=== PATIENT | female | born 1950 | race Caucasian/White ===

== ENCOUNTER 2020-11-21 20:05 | Inpatient (IN) ==
[2020-11-21] MEDS ORDERED: morphine 4 MG/ML VIAL IV ONE (20:45)
--- NOTE | 2020-11-21 20:48 | Emergency Department Note ---
HPI General Chief complaint: Fall Stated complaint: fall Time Seen by Provider: 11/21/20 20:45 Source: patient Mode of arrival: ambulatory Limitations: no limitations History of Present Illness HPI Narrative: Patient is a 70-year-old lady who arrives to the emergency department by ambulance accompanied by her daughter complaining of a fall. History is provided by the patient's daughter and is quite limited due to the patient's dementia. Patient apparently slipped and fell at home earlier today. Her helped her to couch where she laid all day unable to get up because of the pain. Her daughter arrived and found her in significant distress. She called 911 and the patient was transported to hospital for further evaluation. Paramedics did apply a makeshift pelvic binder prior to emergency department arrival as her pain appears to be localized to her lower extremities. Related Data Home Medications Medication Instructions Recorded Confirmed acetaminophen 325 mg capsule 325 mg PO QDAY PRN cap 05/24/18 11/21/20 Previous Rx's Medication Instructions Recorded food supplemt, lactose-reduced 1 each PO BID #472 ml 07/04/18 memantine 10 mg tablet 10 mg PO BID #180 tab 07/06/20 Allergies Allergy/AdvReac Type Severity Reaction Status Date / Time Cephalosporins Allergy Unknown Cardiac Verified 08/18/20 14:37 arrest ibuprofen Allergy Unknown Cardiac Verified 08/18/20 14:37 arrest levofloxacin [From Levaquin] Allergy Unknown Unknown Verified 08/18/20 14:37 Penicillins Allergy Unknown Unknown Verified 08/18/20 14:37 Review of Systems ROS ROS Narrative: Narrative: Limitations: ROS unobtainable due to patients medical condition [facility] Narrative Patient History Narrative: Narrative: Medical/Surgical/Family History All Active Problems (Updated 11/22/20 @ 01:50 by Nate Reyes DO) Closed hip fracture (Acute) Medicare annual wellness visit, initial (Acute) Cachexia (Acute) Alzheimer's dementia with behavioral disturbance (Acute) Osteoporosis (Acute) COPD (chronic obstructive pulmonary disease) (Chronic) Alzheimers disease (Chronic) COPD (chronic obstructive pulmonary disease) (Acute) Migraine (Chronic) Chronic sinusitis (Chronic) Surgical menopause (Chronic) Brachial plexopathy (Chronic) Medical History (Updated 11/22/20 @ 01:50 by Nate Reyes DO) Alzheimer's dementia with behavioral disturbance requires multiple redirections for behavior modification Alzheimers disease 2012 Brachial plexopathy Chronic sinusitis COPD (chronic obstructive pulmonary disease) Medicare annual wellness visit, initial Migraine Surgical menopause Surgical History History of fusion of cervical spine History of hysterectomy History of sinus surgery Tobi's neuroma Family History Unknown Benign neoplasm Essential hypertension Social History Smoking Status: Former smoker Alcohol Intake Frequency: does not drink Substance Use: does not use Exam Narrative Narrative: Gen -patient is awake and alert and appears quite uncomfortable. HEENT -head is atraumatic. There is no conjunctival pallor or scleral icterus. CV -S1-S2 regular rate and rhythm. Peripheral pulses are palpable. Resp -breathing is nonlabored. Lungs are clear to auscultation bilaterally. There is no cyanosis. GI - Abdomen is soft and nontender to palpation. There is no guarding or rebound tenderness. Derm -skin is warm and dry. MSK -patient holds bilateral hips in flexion and there is apparent tenderness to palpation of bilateral greater trochanters without of any obvious bony deformity. Pelvis is stable. Neuro -patient provides incomprehensible answers to questions. She occasionally follows some repeated commands but does not follow commands with any regularity. Patient moves all present extremities equally. General Limitations: no limitations Course Vital Signs Vital signs: Vital Signs Temperature 99 F 11/21/20 20:06 Pulse Rate 78 11/21/20 20:06 Respiratory Rate 18 11/21/20 20:06 Blood Pressure 120/68 11/21/20 20:06 Pulse Oximetry (%) 92 11/21/20 20:06 Temperature 99.3 F H 11/21/20 23:05 Pulse Rate 87 11/21/20 23:05 Respiratory Rate 14 11/21/20 23:05 Blood Pressure 124/68 11/21/20 23:05 Pulse Oximetry (%) 97 11/21/20 23:05 [facility] MDM Narrative Medical decision making narrative: Patient presents following a fall. X-rays reveal a left femoral neck fracture. I discussed the x-ray results and need for likely surgical intervention with the patient's daughter. She is agreeable with the plan for admission for surgical intervention. I discussed the patient's history examination and x-ray findings with Dr. Sanchez. He would like the patient admitted to the medical service and will see the patient in the hospital. I discussed the patient's history examination and diagnostic findings with Dr. Leigh, who agrees with the plan of care and accepts admission. Lab Data Result diagrams: 11/21/20 22:03 Labs: Lab Results 11/21/20 11/21/20 11/21/20 Range/Units 22:00 22:02 22:03 WBC 14.2 H (4.5-11.0) K/mcL RBC 4.11 (4.00-5.20) M/mcL Hgb 11.6 L (12.0-15.0) g/dL Hct 36.2 (36.0-48.0) % POC Hct 36 (36-48) % MCV 88.1 (80.0-100.0) fL MCH 28.2 (26.0-34.0) pg MCHC 32.0 (31.0-36.0) g/dL RDW 15.2 H (11.5-14.5) % Plt Count 313 (140-440) K/mcL MPV 10.7 H (7.4-10.4) fL Neut % (Auto) 91.3 H (38.0-78.0) % Lymph % (Auto) 4.0 L (15.0-49.0) % [place] % (Auto) 3.9 (1.0-12.0) % Eos % (Auto) 0.2 (0.0-7.0) % Baso % (Auto) 0.6 (0.0-2.0) % Lymph # (Auto) 0.56 L (1.50-4.80) K/mcL [place] # (Auto) 0.55 (0.10-0.90) K/mcL Eos # (Auto) 0.03 (0.00-0.70) K/mcL Baso # (Auto) 0.08 (0.00-0.20) K/mcL Absolute Neutrophils 12.94 H (1.80-8.00) K/mcL POC Sodium 140 (133-145) mEq/L POC Potassium 4.1 (3.3-5.1) mEql/L POC Chloride 106 (96-108) mEq/L POC Total CO2 29 (22-30) mmol/L POC BUN 25 H (6-20) mg/dL POC Creatinine 0.6 (0.6-1.2) mg/dL POC Glucose 136 H (70-105) mg/dL POC WB Ioniz Calcium 1.14 L (1.16-1.32) mmEq/L Urine Color [place] Urine Appearance Cloudy A (Clear) Urine pH 5.0 (5.0-9.0) Ur Specific [place] 1.020 (1.000-1.035) Urine Protein 30 A (Negative) mg/dL Urine Glucose (UA) Negative (Negative) mg/dL Urine Ketones Negative (Negative) mg/dL Urine Occult Blood 0.03 (Negative) mg/dL Urine Nitrate Negative (Negative) Urine Bilirubin Negative (Negative) mg/dL Urine Urobilinogen Negative mg/dL Ur Leukocyte Esterase 250 A (Negative) /ug Urine RBC 5 H (0-3) /hpf Urine WBC > 182 H (0-4) /hpf Ur Squamous Epith Cells 2 (0-4) /hpf Urine Bacteria Many A (0) /hpf Urine Mucus Many A (None) /hpf Ur Culture Indicated? yes ED POC Tests ED POC Tests: JOSIAH - SARS Antigen Negative Discharge Plan Patient/Caregiver Discharge Instructions Pt seen by SALES OPERATIONS ASSOCIATE/PA only: No Clinical Impression: Closed hip fracture Patient Disposition: Xfer As Inpt ([facility]) Condition: Fair Discharge Date/Time: 11/21/20 23:06
[2020-11-21 22:10] LABS: POC Blood Urea Nitrogen 25 mg/dL (6-20); POC CO2 29 mmol/L (22-30); POC Calcium, Ionized 1.14 mmEq/L (1.16-1.32); POC Chloride 106 mEq/L (96-108); POC Creatinine 0.6 mg/dL (0.6-1.2); POC Glucose, Random 136 mg/dL (70-105); POC Hematocrit 36 % (36-48); POC Potassium 4.1 mEql/L (3.3-5.1); POC Sodium 140 mEq/L (133-145)
--- NOTE | 2020-11-21 22:33 | Internal Med History&Physical ---
HPI History of Present Illness Patient information: Note initiated : 11/21/20 at 10:32 pm Service Date, if different from initiated Date: [] Patient: Libia Lovell a 70 y/o F admitted on for fall. Chief Complaint: [] History of present illness: Ms. Lovell is a 70 year old F with a history advanced dementia who sustained a ground-level fall at home resulting in left hip injury. Over the next few hours she remained immobile on the bed in pain and discomfort and was subsequently brought to the ER for evaluation. Initial work- up was consistent with left hip fracture and orthopedics was consulted. Orthopedics recommended hospitalization for operative intervention in the morning. Labs WBC 14.2, UA pending. Most of the history was obtained from family due to patient's underlying dementia. Patient started on pain medications. Hospitalist service was consulted for admission At the time of my evaluation patient is nonverbal. History was obtained from records and ER physician, she does not seem to apparent distress except for pain at the fracture site. Review of systems 10 point review systems attempted but could not performed PFSH PFSH All Active Problems (Updated 11/22/20 @ 01:50 by Nate Reyes DO) Closed hip fracture (Acute) Medicare annual wellness visit, initial (Acute) Cachexia (Acute) Alzheimer's dementia with behavioral disturbance (Acute) Osteoporosis (Acute) COPD (chronic obstructive pulmonary disease) (Chronic) Alzheimers disease (Chronic) COPD (chronic obstructive pulmonary disease) (Acute) Migraine (Chronic) Chronic sinusitis (Chronic) Surgical menopause (Chronic) Brachial plexopathy (Chronic) Medical History (Updated 11/22/20 @ 01:50 by Nate Reyes DO) Alzheimer's dementia with behavioral disturbance requires multiple redirections for behavior modification Alzheimers disease 2012 Brachial plexopathy Chronic sinusitis COPD (chronic obstructive pulmonary disease) Medicare annual wellness visit, initial Migraine Surgical menopause Surgical History History of fusion of cervical spine History of hysterectomy History of sinus surgery Britton's neuroma Family History Unknown Benign neoplasm Essential hypertension Social History caregiver/support person: Yes (daughter and dad/ ) marital status: occupational status: retired alcohol intake frequency: does not drink substance use type: does not use MEDS/ALLERGIES Home Medications and Allergies Home Medications Medication Instructions Recorded Confirmed Type acetaminophen 325 mg capsule 325 mg PO QDAY PRN cap 05/24/18 11/21/20 History food supplemt, lactose-reduced 1 each PO BID #472 ml 07/04/18 11/22/20 Rx memantine 10 mg tablet 10 mg PO BID #180 tab 07/06/20 11/21/20 Rx Allergies Allergy/AdvReac Type Severity Reaction Status Date / Time Cephalosporins Allergy Unknown Cardiac Verified 08/18/20 14:37 arrest ibuprofen Allergy Unknown Cardiac Verified 08/18/20 14:37 arrest levofloxacin [From Levaquin] Allergy Unknown Unknown Verified 08/18/20 14:37 Penicillins Allergy Unknown Unknown Verified 08/18/20 14:37 EXAM Constitutional Vitals: Temp Pulse Resp BP Pulse Ox 99 F 73 18 134/65 93 11/21/20 20:06 11/21/20 22:16 11/21/20 20:06 11/21/20 22:16 11/21/20 22:16 Nonverbal, in discomfort occasionally moaning Head normocephalic Oral cavity moist No ear nose discharge Eye movement symmetrical Neck supple no lymphadenopathy S1-S2 regular ESM grade 1 Nonlabored breathing Nondistended nontender abdomen Left lower extremity externally rotated and shortened, left foot bruising/induration Skin no suspicious lesion Psych anxious but alert cooperative Neuro could not be examined due to underlying dementia DATA Data Completed and Pending Labs: Labs from last 24 hours 11/21/20 11/21/20 11/21/20 22:03 22:02 22:00 WBC Pending RBC Pending Hgb Pending Hct Pending POC Hct 36 MCV Pending MCH Pending MCHC Pending RDW Pending Plt Count Pending MPV Pending Neut % (Auto) Pending POC Sodium 140 POC Potassium 4.1 POC Chloride 106 POC Total CO2 29 POC BUN 25 H POC Creatinine 0.6 POC Glucose 136 H POC WB Ioniz Calcium 1.14 L Urine Color Pending Urine Appearance Pending Urine pH Pending Ur Specific [place] Pending Urine Protein Pending Urine Glucose (UA) Pending Urine Ketones Pending Urine Occult Blood Pending Urine Nitrate Pending Urine Bilirubin Pending Urine Urobilinogen Pending Ur Leukocyte Esterase Pending A/P Narrative A/P Narrative: * Left hip fracture-orthopedics on board. Undergo surgery in a.m. * Pain management will be as per orthopedics Hospitalist consult for management of medical issues * Preoperative risk evaluation-based on RCRI [place] [employer] to stratification patient would fall under high risk category in the setting advanced age however she does not have history of CAD/decompensated heart failure/CVA or insulin-dependent diabetes. Renal function stable at GFR 74. No modifiable risk factors at this time. Can proceed with surgery however surgery and anesthesia specific risk will be addressed by individual care providers * Advanced dementia continue memantine * Prophylaxis will be as per orthopedics Plan * Inpatient admission * Keep n.p.o. after midnight/crystalloids and pain management * Early mobilization/rehab during postoperative phase * Pain management * Discharge planning Time Spent With Patient Time: Total time spent is greater than 50% in coordination of care (as documented) at patient's floor/unit and/or counseling patient:
[2020-11-21 22:48] LABS: Basophils # (Auto) 0.08 K/mcL (0.00-0.20); Basophils % (Auto) 0.6 % (0.0-2.0); Eosinophils # (Auto) 0.03 K/mcL (0.00-0.70); Eosinophils % (Auto) 0.2 % (0.0-7.0); Hematocrit 36.2 % (36.0-48.0); Hemoglobin 11.6 g/dL (12.0-15.0); Lymphocytes # (Auto) 0.56 K/mcL (1.50-4.80); Mean Cell Volume 88.1 fL (80.0-100.0); Mean Platelet Volume 10.7 fL (7.4-10.4); Monocytes # (Auto) 0.55 K/mcL (0.10-0.90); Monocytes % (Auto) 3.9 % (1.0-12.0); Neutrophils % (Auto) 91.3 % (38.0-78.0); Platelet Count 313 K/mcL (140-440); RBC 4.11 M/mcL (4.00-5.20); Red Cell Distribution Width 15.2 % (11.5-14.5); WBC 14.2 K/mcL (4.5-11.0)
[2020-11-21 23:02] LABS: Appearance,Urine CLOUDY (Clear); Bacteria,Urine MANY /hpf (0); Bilirubin,Urine Negative (Negative); Color,Urine AMBER; Culture Indicated,Urine yes; Glucose,Urine (UA) Negative (Negative); Ketones,Urine Negative (Negative); Leukocyte Esterase,Urine 250 /ug (Negative); Mucus,Urine MANY /hpf; Nitrate,Urine Negative (Negative); Protein,Urine 30 mg/dL (Negative); Urine Blood 0.03 mg/dL (Negative); Urine RBC 5 /hpf (0-3); Urine Squamous Epithelial Cell 2 /hpf (0-4); Urine WBC > 182 /hpf (0-4); Urobilinogen,Urine Negative
[2020-11-21] MEDS ORDERED: ONDANSETRON 4 MG/2 ML VIAL IV PRN (23:24)
[2020-11-21] MEDS ORDERED: ONDANSETRON 4 MG ODT TABLET SL PRN (23:24)
[2020-11-21] MEDS ORDERED: ACETAMINOPHEN 325 MG TABLET PO PRN (23:24)
[2020-11-21] MEDS ORDERED: BISACODYL 10 MG SUPP.RECT PR PRN (23:24)
[2020-11-21] MEDS ORDERED: POTASSIUM CHLORIDE 20 MEQ PACKET PO PRN (23:24)
[2020-11-21] MEDS ORDERED: MAGNESIUM SULFATE 2 GM/50 ML BAG IV PRN (23:24)
[2020-11-21] MEDS ORDERED: POTASSIUM CHLORIDE 40 MEQ in DEXTROSE 5% IN WATER 500 ML IV PRN (23:24)
[2020-11-21] MEDS ORDERED: POLYETHYLENE GLYCOL 3350 17 GM PACKET PO PRN (23:24)
[2020-11-22] MEDS: 0.9 % SODIUM CHLORIDE 1,000 ML IV SCH ×3 (01:44→22:26)
[2020-11-22] MEDS ORDERED: HYDROmorphone 0.5 MG/0.5 ML SYRINGE ONE (02:56)
[2020-11-22] MEDS: HYDROmorphone 0.5 MG/0.5 ML SYRINGE IV PRN ×3 (02:58→18:39)
--- NOTE | 2020-11-22 06:33 | XRay Report ---
CLINICAL INFORMATION: fall COMPARISON: None. FINDINGS: Acute subcapital fracture of the left hip shows less than 1 cm superior displacement of the femoral neck. There is mild impaction. Mild degeneration in the left hip and both SI joints appreciated. Right hip is unremarkable. Large amount of rectal stool noted with dense particles. Soft tissue swelling over the fracture site IMPRESSION: Moderately displaced acute subcapital fracture - left hip Interpreted and Authenticated by: Rusty Blancas 11/22/20
[2020-11-22] MEDS: 0.9 % SODIUM CHLORIDE 10 ML SYRINGE IV SCH ×3 (06:37→21:01)
--- NOTE | 2020-11-22 06:45 | XRay Report ---
CLINICAL INFORMATION: Trauma - fall COMPARISON: 02/12/2016 FINDINGS: Heart size, mediastinum and pulmonary vessels are normal. Lung Bonser elevated and there is wall thickening of the bronchi compatible chronic bronchitis or asthma - no change. Lungs are otherwise clear. No effusions or evidence of pneumothorax. No evidence of fracture in the spine or ribs IMPRESSION: Moderate chronic bronchitis or asthma - stable. No acute posttraumatic change Interpreted and Authenticated by: Rusty Blancas 11/22/20
--- NOTE | 2020-11-22 06:58 | Cat Scan Report ---
CLINICAL INFORMATION: Trauma - fall. History of dementia COMPARISON: None. TECHNIQUE: 2.5 mm helical slices were obtained in the skull base to vertex. Following reconstruction, axial reformatted images were reviewed at bone and parenchymal windows. The exam was performed using radiation dose optimization techniques including, but not limited to, automated exposure control, adjustment of the mA and/or kV according to patient size and use of iterative reconstruction technique. FINDINGS: The ventricles, sulci, fissures, and cisterns are symmetrically enlarged bowel with moderate atrophy. No extra-axial fluid collections are identified. Moderate chronic ischemic changes seen in the deep cerebral white matter and basal ganglia. There is no evidence of hemorrhage, mass effect, or edema. Bone windows show no osseous abnormality. IMPRESSION: Moderate atrophy and moderate chronic ischemic changes in the cerebral white matter and basal ganglia slightly more than typically seen for this age group. There is no intracerebral hemorrhage or posttraumatic change. Large amount of cerumen in both external auditory canals. Interpreted and Authenticated by: Rusty Blancas 11/22/20
[2020-11-22 07:22] LABS: Basophils # (Auto) 0.06 K/mcL (0.00-0.20); Basophils % (Auto) 0.6 % (0.0-2.0); Eosinophils # (Auto) 0.21 K/mcL (0.00-0.70); Eosinophils % (Auto) 2.1 % (0.0-7.0); Hematocrit 34.6 % (36.0-48.0); Lymphocytes % (Auto) 7.9 % (15.0-49.0); Mean Cell Volume 88.5 fL (80.0-100.0); Mean Corpuscular HGB Conc 31.8 g/dL (31.0-36.0); Mean Platelet Volume 10.3 fL (7.4-10.4); Monocytes # (Auto) 0.51 K/mcL (0.10-0.90); Monocytes % (Auto) 5.1 % (1.0-12.0); Neutrophils % (Auto) 84.3 % (38.0-78.0); Platelet Count 292 K/mcL (140-440); RBC 3.91 M/mcL (4.00-5.20); Red Cell Distribution Width 15.1 % (11.5-14.5); WBC 10.1 K/mcL (4.5-11.0)
[2020-11-22 07:38] LABS: ALT/SGPT 27 U/L (<40); AST/SGOT 24 U/L (<32); Albumin 3.1 gm/dL (3.2-5.2); Alkaline Phosphatase 117 U/L (39-117); Bilirubin,Direct < 0.2 mg/dL (0-0.3); Bilirubin,Total 0.3 mg/dL (0.1-1.0); Blood Urea Nitrogen 22 mg/dL (8-23); Calcium 8.4 mg/dL (8.6-10.4); Carbon Dioxide 25 mmol/L (22-30); Chloride 104 mmol/L (96-108); Glomerular Filtration Rate 74; Glucose 124 mg/dL (70-105); Lactate Dehydrogenase 285 U/L (135-225); Phosphorous 2.9 mg/dL (2.5-4.5); Triglycerides 56 mg/dL (<150); Uric Acid 3.2 mg/dL (2.5-8.0)
[2020-11-22] MEDS ORDERED: METHOCARBAMOL 1,000 MG/10 ML VIAL IV ONE (07:40)
[2020-11-22] MEDS ORDERED: VANCOMYCIN 1,000 MG in 0.9 % SODIUM CHLORIDE 250 ML IV ONE (07:51)
--- NOTE | 2020-11-22 07:53 | Cat Scan Report ---
CLINICAL INFORMATION: Trauma COMPARISON: None. TECHNIQUE: 0.625 mm helical slices were obtained from the skull base through the superior T2 end plate, and following reconstruction, 2.5 mm sagittal, coronal and axial reformations were then processed. The exam was reviewed at bone and soft tissue windows. The exam was performed using radiation dose optimization techniques including, but not limited to, automated exposure control, adjustment of the mA and/or kV according to patient size and use of iterative reconstruction technique. FINDINGS: Moderate dextroscoliosis of the cervical and upper thoracic spine appreciated. 3 mm C4 and C7 anterior subluxation due to degenerative facet disease. No fracture appreciated. Partial fusion of the C5-6 vertebral bodies is likely congenital. The cervical cord is normal in contour and caliber without evidence of hemorrhage or other abnormality. No soft tissue abnormality. The C2-3 disc level is normal. At C3-4, moderate broad disc protrusion left-sided asymmetry results in mild left lateral recess and central canal narrowing At C4-5, moderate broad far left disc spur complex and facet arthropathy result in severe left IV foraminal narrowing. There is impingement of the exiting left C5 nerve root. Mild central canal stenosis. At C5-6, moderate left IV foraminal narrowing due to uncovertebral spurring. There may be impingement of the exiting left C6 nerve root At C6-7 small central disc protrusion impinges the anterior thecal sac. The C7-T1 disc level is normal IMPRESSION: 1. No fracture or other posttraumatic change. 2. Multilevel degeneration resulting in central canal, lateral recess and IV foraminal narrowing with exiting nerve root impingement. Please correlate with recurrent or chronic upper extremity radiculopathy Interpreted and Authenticated by: Rusty Blancas 11/22/20
[2020-11-22] MEDS: MULTIVIT,THER IRON,CA,FA & MIN 1 TABLET PO SCH (08:45)
--- NOTE | 2020-11-22 08:45 | Consultation ---
DATE OF CONSULTATION: 11/22/2020 IDENTIFICATION: Libia is a 70-year-old female. CHIEF COMPLAINT: Left hip fracture. HISTORY OF PRESENT ILLNESS: Libia sustained a non-syncopal ground level fall yesterday. She had pain, but sat around on the couch for a while hoping it would get better. She was ultimately transported to the hospital here at [facility] where she was evaluated by Dr. Reyes and a left hip fracture was noted. She was also noted to have a urinary tract infection. She was admitted to hospitalist service because of her comorbidities. She on presentation does seem to be in a fair amount of discomfort with spasming in and about the left hip. She has been unable to weightbear. She does have a history of fairly advanced dementia, and so personally she is a poor historian. PAST MEDICAL HISTORY: Significant for COPD, fairly advanced Alzheimer's, some sort of a unknown brachial plexopathy, and she carries a diagnosis of cachexia which certainly would be a increased risk for surgical intervention. PAST SURGICAL HISTORY: Previous cervical fusion and hysterectomy, otherwise noncontributory. SOCIAL HISTORY: Previous smoker. Does not drink alcohol. She lives at home with her . Her family including the daughter that I met this morning are very involved in her care. REVIEW OF SYSTEMS: My understanding is that she has been healthy recently and a 10-point review of systems is negative. MEDICATIONS: Please see intake questionnaire, they are noted on hospital record. ALLERGIES: INCLUDE CEPHALOSPORINS, IBUPROFEN, LEVAQUIN, PENICILLIN. PHYSICAL EXAMINATION: GENERAL: She does awaken, really does not answer questions. She does seem to be in some discomfort with some spasms about this hip fracture especially with any movement. HEAD: Normocephalic, atraumatic. EYES: Conjunctivae is clear with no drainage. ENT: Within normal limits. NECK: Supple without pain on range of motion. HEART: Regular. LUNGS: Clear. ABDOMEN: Benign. EXTREMITIES: Her left hip is carefully positioned. Certainly, any motion produces severe pain. She seems to be without focal neurovascular deficit ____ distally. IMAGING: Radiographs demonstrate left hip fracture, this is femoral neck which is displaced. IMPRESSION: Left femoral neck fracture. This is a displaced femoral neck fracture in need of operative treatment. We discussed the risks, complications, and limitations at length with the daughter. She understands this is certainly a complicated problem, but wishes to move ahead with surgical intervention. We will plan to proceed with hemiarthroplasty. HERNANDOD:marycarmen Job ID: [id number] Doc ID: [id number] Terrence Sanchez MD
[2020-11-22] MEDS ORDERED: DOCUSATE SODIUM 100 MG CAPSULE PO SCH (09:00)
[2020-11-22] MEDS ORDERED: PROPOFOL 200 MG/20 ML VIAL IV ONE (09:05)
[2020-11-22] MEDS ORDERED: KETAMINE 50 MG/ML ML ONE (09:05)
[2020-11-22] MEDS ORDERED: fentaNYL 100 MCG/2 ML VIAL IV ONE (09:05)
[2020-11-22] MEDS ORDERED: ONDANSETRON 4 MG/2 ML VIAL ONE (09:05)
[2020-11-22] MEDS ORDERED: PHENYLEPHRINE 10 MG/ML VIAL ONE (09:05)
[2020-11-22] MEDS ORDERED: DEXAMETHASONE 10 MG/ML VIAL ONE (09:05)
[2020-11-22] MEDS ORDERED: GLYCOPYRROLATE 0.2 MG/ML VIAL IV ONE (09:05)
[2020-11-22] MEDS ORDERED: LIDOCAINE HCL/PF 100 MG/5 ML SYRINGE IV ONE (09:05)
[2020-11-22] MEDS ORDERED: IPRATROPIUM/ALBUTEROL 3 ML AMPUL.NEB NEB PRN (09:32)
[2020-11-22] MEDS ORDERED: LACTATED RINGERS 250 ML IV PRN (09:32)
[2020-11-22] MEDS ORDERED: fentaNYL 100 MCG/2 ML VIAL IV PRN (09:32)
[2020-11-22] MEDS ORDERED: NALOXONE HCL 0.4 MG/ML VIAL IV PRN (09:32)
[2020-11-22] MEDS ORDERED: ACETAMINOPHEN 1,000 MG/100 ML BAG IV ONE (09:32)
[2020-11-22] MEDS ORDERED: cefTRIAXone 2 GM in DEXTROSE 5% IN WATER 50 ML IV ONE (09:36)
[2020-11-22] MEDS ORDERED: LACTATED RINGERS 1,000 ML IV SCH (09:45)
--- NOTE | 2020-11-22 09:45 | Internal Med Progress Note ---
SUBJECTIVE Subjective Patient information: Note initiated : 11/22/20 at 9:40 am Service Date, if different from initiated Date: [] Patient: Libia Lovell a 70 y/o F admitted on 11/21/20 for fall. Chief Complaint: [] Interval history: Ms. Lovell is a 70 year old F with a history advanced dementia who sustained a ground-level fall at home resulting in left hip injury. Over the next few hours she remained immobile on the bed in pain and discomfort and was subsequently brought to the ER for evaluation. Initial work-up was consistent with left hip fracture and orthopedics was consulted. Orthopedics recommended hospitalization for operative intervention in the morning. Labs WBC 14.2, UA pending. Most of the history was obtained from family due to patient's underlying dementia. Patient started on pain medications. Hospitalist service was consulted for admission At the time of my evaluation patient is nonverbal. History was obtained from records and ER physician, she does not seem to apparent distress except for pain at the fracture site. 11/22-UA significant for pyuria. T-max 100.1. Started on Rocephin. Scheduled for surgery. Will review postop. Overnight no other concerns per nursing staff. Occasionally moaning in pain.Stable labs including white count at 10 down from 14, urine cultures pending. Started quinolone Constitutional Vitals: Vital Signs Temp Pulse Resp BP Pulse Ox 100.1 F H 99 H 14 123/69 95 11/22/20 07:00 11/22/20 07:00 11/22/20 07:00 11/22/20 07:00 11/22/20 07:00 Period Temp Pulse Resp BP Sys/Rodas Pulse Ox Last 24 Hr 98.4 F-100.1 F 73-99 14-18 120-141/62-117 90-97 Intake and Output 11/21/20 11/22/20 11/22/20 21:59 05:59 13:59 Intake Total 0 250 Output Total 325 Balance 0 -75 Weight 35.38 kg 35.834 kg In moderate discomfort occasionally moaning Nonlabored breathing No anxiety agitation Left lower extremity externally rotated and shortened/foot swelling Intake & Output: Intake & Output 11/21/20 11/22/20 11/22/20 21:59 05:59 13:59 Intake Total 0 250 Output Total 325 Balance 0 -75 Weight 35.38 kg 35.834 kg Intake: IV 250 Vancomycin 1,000 mg In Sodium 250 Chloride 0.9% 250 ml @ 250 mls/ hr IV ONCE ONE Rx#:[id number] Oral 0 0 Output: Urine Catheter Amount 325 Other: Urine Appearance Clear Clear Uretheral (Peterson) Cloudy Clear Clear Urine Color Dark Yellow Dark Yellow Uretheral (Peterson) Bright Yellow Dark Yellow Dark Yellow Urine Odor Foul Uretheral (Peterson) Normal Stool Size Smear Stool Color Brown Stool Consistency Soft OBJ DATA Labs CBC & Chem 7: 11/23/20 05:47 11/23/20 05:47 Labs: Abnormal Lab Results 11/22/20 11/22/20 11/21/20 05:47 05:47 22:03 WBC 14.2 H RBC 3.91 L Hgb 11.0 L 11.6 L Hct 34.6 L RDW 15.1 H 15.2 H MPV 10.7 H Neut % (Auto) 84.3 H 91.3 H Lymph % (Auto) 7.9 L 4.0 L Lymph # (Auto) 0.80 L 0.56 L Absolute Neutrophils 8.50 H 12.94 H Anion Gap 6.0 L POC BUN Glucose 124 H POC Glucose Calcium 8.4 L POC WB Ioniz Calcium Lactate Dehydrogenase 285 H Albumin 3.1 L Urine Appearance Urine Protein Ur Leukocyte Esterase Urine RBC Urine WBC Urine Bacteria Urine Mucus 11/21/20 11/21/20 22:02 22:00 WBC RBC Hgb Hct RDW MPV Neut % (Auto) Lymph % (Auto) Lymph # (Auto) Absolute Neutrophils Anion Gap POC BUN 25 H Glucose POC Glucose 136 H Calcium POC WB Ioniz Calcium 1.14 L Lactate Dehydrogenase Albumin Urine Appearance Cloudy A Urine Protein 30 A Ur Leukocyte Esterase 250 A Urine RBC 5 H Urine WBC > 182 H Urine Bacteria Many A Urine Mucus Many A Meds: Medications Acetaminophen (Acetaminophen 325 Mg Tablet) 650 mg PO Q4-6HP PRN; Protocol PRN Reason: Per Pain Protocol/Fever > 101 Albuterol/Ipratropium (Ipratropium/Albuterol 3 Ml Ampul.Neb) 3 ml NEB ONCE PRN PRN Reason: Wheezing Stop: 11/22/20 11:32 Bisacodyl (Bisacodyl 10 Mg Supp.Rect) 10 mg [place] Q2-3DAYS PRN PRN Reason: Constipation Docusate Sodium (Docusate Sodium 100 Mg Capsule) 100 mg PO BID [facility] Last Admin: 11/22/20 08:45 Dose: Not Given Documented by: Fentanyl (Fentanyl 100 Mcg/2 Ml Vial) 25 mcg IV Q2M PRN PRN Reason: Pain Stop: 11/22/20 11:33 Hydromorphone HCl (Hydromorphone 0.5 Mg/0.5 Ml Syringe) 0.25 - 0.5 mg IV Q4HP PRN; Protocol PRN Reason: Per Pain Protocol Last Admin: 11/22/20 07:30 Dose: 0.25 mg Documented by: Potassium Chloride 40 meq/ (Dextrose) 520 mls @ 130 mls/hr IV UD PRN PRN Reason: K+ = or < 3.5 Acetaminophen (Ofirmev) 650 mg in 65 mls @ 130 mls/hr IV Q6HP PRN; Protocol PRN Reason: Per Pain Protocol/Fever > 101 Magnesium Sulfate (Magnesium Sulfate) 2 gm in 50 mls @ 50 mls/hr IV UD PRN PRN Reason: MG = or < 1.7 Sodium Chloride (Sodium Chloride 0.9%) 1,000 mls @ 50 mls/hr IV .Q20H [facility] Stop: 11/24/20 11:23 Last Admin: 11/22/20 01:44 Dose: 50 mls/hr Documented by: Lactated Ringer's (Lactated Ringers) 1,000 mls @ 0 mls/hr IV PRN PRN PRN Reason: Hypovolemia Stop: 11/22/20 11:32 Lactated Ringer's (Lactated Ringers) 1,000 mls @ 20 mls/hr IV .Q24H [facility] Stop: 11/22/20 11:32 Acetaminophen (Ofirmev) 1,000 mg in 100 mls @ 200 mls/hr IV ONCE ONE Stop: 11/22/20 10:01 Ceftriaxone Sodium 2 gm/ (Dextrose) 50 mls @ 100 mls/hr IV ONCE ONE; Protocol Stop: 11/22/20 10:05 Iron Carb/Multivit/Cardroom Hand/Folic Acid (Multivit,Ther Iron,Ca,Fa & Min 1 Tablet) 1 tab PO DAILY [facility] Last Admin: 11/22/20 08:45 Dose: Not Given Documented by: Melatonin (Melatonin 3 Mg Tablet) 3 mg PO HSP PRN PRN Reason: Insomnia Naloxone HCl (Naloxone Hcl 0.4 Mg/Ml Vial) 0.1 mg IV Q2MIN PRN PRN Reason: Opiate Reversal Stop: 11/22/20 11:33 Ondansetron HCl (Ondansetron 4 Mg Odt Tablet) 4 mg SL Q4-6HP PRN; Protocol PRN Reason: Nausea And Vomiting Ondansetron HCl (Ondansetron 4 Mg/2 Ml Vial) 4 mg IV Q4-6HP PRN; Protocol PRN Reason: Nausea And Vomiting Polyethylene Glycol (Polyethylene Glycol 3350 17 Gm Packet) 17 gm PO DAILYP PRN PRN Reason: Constipation Potassium Chloride (Potassium Chloride 20 Meq Packet) 40 meq PO DAILYP PRN PRN Reason: K+ < 3.5 Senna/Docusate Sodium (Sennosides/Docusate Sodium 1 Tab Tablet) 1 tab PO HS [facility] Sodium Chloride (0.9 % Sodium Chloride 10 Ml Syringe) 10 ml IV Q8 [facility] Last Admin: 11/22/20 06:37 Dose: Not Given Documented by: A/P Narrative A/P Narrative: * Left hip fracture- will undergo surgery today. Review postop * Pain management will be as per orthopedics Hospitalist consult for management of medical issues * Uncomplicated UTI start quinolone. De-escalate based on cultures * Advanced dementia continue memantine, Dementia care/delirium watch * DVT prophylaxis will be as per orthopedics Plan * Start antibiotic coverage * Review postop * Early mobilization/rehab during postoperative phase * Pain management/DVT prophylaxis per orthopedics * Discharge planning likely SNF Time Spent With Patient Time: Total time spent is greater than 50% in coordination of care (as documented) at patient's floor/unit and/or counseling patient:
--- NOTE | 2020-11-22 10:00 | Brief Operative Note ---
Brief Operative Note Date of procedure: 11/22/20 Pre-op diagnosis: Left hip fracture Post-op diagnosis: same Procedure: hemiarthroplasty Grafts/Implants: Yes Anesthesia: GETA Complications: none Surgeon: Terrence Sanchez Mangle Roller: Terrence Arevalo Estimated blood loss (cc): 50 Condition: stable Disposition: PACU
[2020-11-22] MEDS ORDERED: BISACODYL 10 MG SUPP.RECT PR PRN (10:02)
[2020-11-22] MEDS ORDERED: FLEETS ADULT ENEMA PR PRN (10:02)
[2020-11-22] MEDS ORDERED: BENZOCAINE/MENTHOL 1 LOZENGE PO PRN (10:02)
[2020-11-22] MEDS ORDERED: MAGNESIUM HYDROXIDE 30 ML ORAL.SUSP PO PRN (10:02)
[2020-11-22] MEDS ORDERED: POLYETHYLENE GLYCOL 3350 17 GM PACKET PO PRN (10:02)
[2020-11-22] MEDS ORDERED: 0.9 % SODIUM CHLORIDE 10 ML SYRINGE IV ONE (10:09)
[2020-11-22] MEDS: LEVOFLOXACIN 750 MG/150 ML BAG IV SCH (10:10)
[2020-11-22] MEDS ORDERED: HYDROmorphone 0.5 MG/0.5 ML SYRINGE IV ONE (10:32)
[2020-11-22] MEDS ORDERED: VANCOMYCIN 1,000 MG in 0.9 % SODIUM CHLORIDE 250 ML IV SCH (20:00)
[2020-11-22] MEDS: DOCUSATE SODIUM 100 MG CAPSULE PO SCH (20:12)
[2020-11-22] MEDS: SENNOSIDES 1 TABLET PO SCH (20:12)
[2020-11-22] MEDS ORDERED: SENNOSIDES/DOCUSATE SODIUM 1 TAB TABLET PO SCH (21:00)
[2020-11-23] MEDS: 0.9 % SODIUM CHLORIDE 10 ML SYRINGE IV SCH ×3 (04:36→22:29)
[2020-11-23 06:43] LABS: Basophils # (Auto) 0.03 K/mcL (0.00-0.20); Basophils % (Auto) 0.3 % (0.0-2.0); Eosinophils # (Auto) 0.17 K/mcL (0.00-0.70); Eosinophils % (Auto) 1.8 % (0.0-7.0); Hemoglobin 9.1 g/dL (12.0-15.0); Lymphocytes # (Auto) 1.32 K/mcL (1.50-4.80); Lymphocytes % (Auto) 14.2 % (15.0-49.0); Mean Cell Volume 88.6 fL (80.0-100.0); Mean Corpuscular HGB Conc 32.5 g/dL (31.0-36.0); Mean Platelet Volume 10.3 fL (7.4-10.4); Monocytes # (Auto) 0.61 K/mcL (0.10-0.90); Monocytes % (Auto) 6.6 % (1.0-12.0); Neutrophils % (Auto) 77.1 % (38.0-78.0); Platelet Count 247 K/mcL (140-440); RBC 3.16 M/mcL (4.00-5.20); Red Cell Distribution Width 15.3 % (11.5-14.5); WBC 9.3 K/mcL (4.5-11.0)
[2020-11-23 07:07] LABS: INR 0.9 (0.9-1.1); Prothrombin Time 12.9 sec (11.9-14.5)
[2020-11-23 07:15] LABS: ALT/SGPT 22 U/L (<40); AST/SGOT 30 U/L (<32); Albumin 2.7 gm/dL (3.2-5.2); Alkaline Phosphatase 93 U/L (39-117); Bilirubin,Direct < 0.2 mg/dL (0-0.3); Bilirubin,Total 0.2 mg/dL (0.1-1.0); Blood Urea Nitrogen 18 mg/dL (8-23); Calcium 8.1 mg/dL (8.6-10.4); Carbon Dioxide 24 mmol/L (22-30); Chloride 107 mmol/L (96-108); Globulin 2.7 gm/dL (2.2-3.7); Glomerular Filtration Rate 74; Glucose 109 mg/dL (70-105); Lactate Dehydrogenase 264 U/L (135-225); Phosphorous 2.8 mg/dL (2.5-4.5); Triglycerides 85 mg/dL (<150); Uric Acid 2.8 mg/dL (2.5-8.0)
[2020-11-23] MEDS: MULTIVIT,THER IRON,CA,FA & MIN 1 TABLET PO SCH (09:01)
[2020-11-23] MEDS: 0.9 % SODIUM CHLORIDE 1,000 ML IV SCH ×2 (09:02→18:25)
[2020-11-23] MEDS: DOCUSATE SODIUM 100 MG CAPSULE PO SCH ×3 (09:02→22:56)
[2020-11-23] MEDS: LEVOFLOXACIN 750 MG/150 ML BAG IV SCH (09:03)
--- NOTE | 2020-11-23 09:24 | Internal Med Progress Note ---
SUBJECTIVE Subjective Patient information: Note initiated : 11/23/20 at 9:21 am Service Date, if different from initiated Date: [] Patient: Libia Lovell a 70 y/o F admitted on 11/21/20 for fall. Chief Complaint: [] Interval history: Ms. Lovell is a 70 year old F with a history advanced dementia who sustained a ground-level fall at home resulting in left hip injury. Over the next few hours she remained immobile on the bed in pain and discomfort and was subsequently brought to the ER for evaluation. Initial work-up was consistent with left hip fracture and orthopedics was consulted. Orthopedics recommended hospitalization for operative intervention in the morning. Labs WBC 14.2, UA pending. Most of the history was obtained from family due to patient's underlying dementia. Patient started on pain medications. Hospitalist service was consulted for admission At the time of my evaluation patient is nonverbal. History was obtained from records and ER physician, she does not seem to apparent distress except for pain at the fracture site. 11/22-UA significant for pyuria. T-max 100.1. Started on Rocephin. Scheduled for surgery. Will review postop. Overnight no other concerns per nursing staff. Occasionally moaning in pain.Stable labs including white count at 10 down from 14, urine cultures pending. Started quinolone 11/23-postop day 2. Doing well. Able to feed with assistance. Daughter expressed desire for SNF placement due to advanced dementia and need for postoperative rehab. Case management to coordinate. Improving white count. Continuing levofloxacin for UTI. Recovering well postop. No significant postoperative pain. Slightly drowsy this morning Constitutional Vitals: Vital Signs Temp Pulse Resp BP Pulse Ox 98.2 F 85 20 114/67 92 11/23/20 07:18 11/23/20 07:18 11/23/20 07:18 11/23/20 07:18 11/23/20 07:18 Period Temp Pulse Resp BP Sys/Rodas Pulse Ox Last 24 Hr 96.7 F-98.5 F 57-98 8-20 99-140/56-89 69-100 Intake and Output 11/22/20 11/23/20 11/23/20 21:59 05:59 13:59 Intake Total 336 902 0413 Output Total 1400 Balance 320 -690 1000 Weight 35.834 kg Alert and eating breakfast Minimally communicative at baseline Nonlabored breathing Intake & Output: Intake & Output 11/22/20 11/23/20 11/23/20 21:59 05:59 13:59 Intake Total 839 589 9958 Output Total 1400 Balance 320 -690 1000 Weight 35.834 kg Intake: IV 250 1000 Sodium Chloride 0.9% 1,000 ml @ 1000 50 mls/hr IV .Q20H [facility] Rx#: [id number] Vancomycin 1,000 mg In Sodium 250 Chloride 0.9% 250 ml @ 250 mls/ hr IV ONCE [facility] Rx#:[id number] Oral 320 460 Output: Urine Catheter Amount 1400 Other: Meal Dinner Percent of Meal Consumed 75% Feeding Ability Total Assistance Urine Appearance Clear Clear Uretheral (Peterson) Clear Clear Urine Color Bright Yellow Straw Uretheral (Peterson) Straw Straw Urine Odor Normal Normal Uretheral (Peterson) Normal Normal Stool Size Smear Stool Color Brown # Voids 1 OBJ DATA Labs CBC & Chem 7: 11/23/20 05:47 11/23/20 05:47 Labs: Abnormal Lab Results 11/23/20 11/23/20 11/22/20 05:47 05:47 05:47 WBC RBC 3.16 L Hgb 9.1 L Hct 28.0 L RDW 15.3 H MPV Neut % (Auto) Lymph % (Auto) 14.2 L Lymph # (Auto) 1.32 L Absolute Neutrophils Anion Gap 6.0 L 6.0 L POC BUN Glucose 109 H 124 H POC Glucose Calcium 8.1 L 8.4 L POC WB Ioniz Calcium Lactate Dehydrogenase 264 H 285 H Total Protein 5.4 L Albumin 2.7 L 3.1 L Urine Appearance Urine Protein Ur Leukocyte Esterase Urine RBC Urine WBC Urine Bacteria Urine Mucus 11/22/20 11/21/20 11/21/20 05:47 22:03 22:02 WBC 14.2 H RBC 3.91 L Hgb 11.0 L 11.6 L Hct 34.6 L RDW 15.1 H 15.2 H MPV 10.7 H Neut % (Auto) 84.3 H 91.3 H Lymph % (Auto) 7.9 L 4.0 L Lymph # (Auto) 0.80 L 0.56 L Absolute Neutrophils 8.50 H 12.94 H Anion Gap POC BUN 25 H Glucose POC Glucose 136 H Calcium POC WB Ioniz Calcium 1.14 L Lactate Dehydrogenase Total Protein Albumin Urine Appearance Urine Protein Ur Leukocyte Esterase Urine RBC Urine WBC Urine Bacteria Urine Mucus 11/21/20 22:00 WBC RBC Hgb Hct RDW MPV Neut % (Auto) Lymph % (Auto) Lymph # (Auto) Absolute Neutrophils Anion Gap POC BUN Glucose POC Glucose Calcium POC WB Ioniz Calcium Lactate Dehydrogenase Total Protein Albumin Urine Appearance Cloudy A Urine Protein 30 A Ur Leukocyte Esterase 250 A Urine RBC 5 H Urine WBC > 182 H Urine Bacteria Many A Urine Mucus Many A Meds: Medications Acetaminophen (Acetaminophen 325 Mg Tablet) 650 mg PO Q4-6HP PRN; Protocol PRN Reason: Per Pain Protocol/Fever > 101 Hydrocodone Bitart/Acetaminophen (Hydrocodone/Apap 5/325mg Tablet) 0 tab PO Q4HP PRN; Protocol PRN Reason: Per Pain Protocol Bisacodyl (Bisacodyl 10 Mg Supp.Rect) 10 mg [place] Q2-3DAYS PRN PRN Reason: Constipation Docusate Sodium (Docusate Sodium 100 Mg Capsule) 100 mg PO BID [facility] Last Admin: 11/23/20 09:02 Dose: 100 mg Documented by: Hydromorphone HCl (Hydromorphone 0.5 Mg/0.5 Ml Syringe) 0.25 - 0.5 mg IV Q4HP PRN; Protocol PRN Reason: Per Pain Protocol Last Admin: 11/22/20 18:39 Dose: 0.25 mg Documented by: Potassium Chloride 40 meq/ (Dextrose) 520 mls @ 130 mls/hr IV UD PRN PRN Reason: K+ = or < 3.5 Acetaminophen (Ofirmev) 650 mg in 65 mls @ 130 mls/hr IV Q6HP PRN; Protocol PRN Reason: Per Pain Protocol/Fever > 101 Magnesium Sulfate (Magnesium Sulfate) 2 gm in 50 mls @ 50 mls/hr IV UD PRN PRN Reason: MG = or < 1.7 Sodium Chloride (Sodium Chloride 0.9%) 1,000 mls @ 50 mls/hr IV .Q20H [facility] Stop: 11/24/20 11:23 Last Admin: 11/23/20 09:02 Dose: 50 mls/hr Documented by: Levofloxacin (Levaquin) 750 mg in 150 mls @ 100 mls/hr IV Q24H [facility] Last Admin: 11/23/20 09:03 Dose: 100 mls/hr Documented by: Iron Carb/Multivit/Food Services Director/Folic Acid (Multivit,Ther Iron,Ca,Fa & Min 1 Tablet) 1 tab PO DAILY [facility] Last Admin: 11/23/20 09:01 Dose: 1 tab Documented by: Magnesium Hydroxide (Magnesium Hydroxide 30 Ml Oral.Susp) 30 ml PO BIDP PRN PRN Reason: Constipation Melatonin (Melatonin 3 Mg Tablet) 3 mg PO HSP PRN PRN Reason: Insomnia Methocarbamol (Methocarbamol 750 Mg Tablet) 750 mg PO Q6HP PRN PRN Reason: Muscle Spasm Ondansetron HCl (Ondansetron 4 Mg Odt Tablet) 4 mg SL Q4-6HP PRN; Protocol PRN Reason: Nausea And Vomiting Ondansetron HCl (Ondansetron 4 Mg/2 Ml Vial) 4 mg IV Q4-6HP PRN; Protocol PRN Reason: Nausea And Vomiting Polyethylene Glycol (Polyethylene Glycol 3350 17 Gm Packet) 17 gm PO DAILYP PRN PRN Reason: Constipation Potassium Chloride (Potassium Chloride 20 Meq Packet) 40 meq PO DAILYP PRN PRN Reason: K+ < 3.5 Senna (Sennosides 1 Tablet) 2 tab PO HS [facility] Last Admin: 11/22/20 20:12 Dose: 2 tab Documented by: Sodium Biphosphate/Sodium Phosphate (Fleets Adult Enema) 1 dose AL Q3-4DAYS PRN PRN Reason: Constipation Sodium Chloride (0.9 % Sodium Chloride 10 Ml Syringe) 10 ml IV Q8 [facility] Last Admin: 11/23/20 04:36 Dose: Not Given Documented by: Throat Lozenges (Benzocaine/Menthol 1 Lozenge) 1 lozenge PO PRN PRN PRN Reason: Sore Throat A/P Narrative A/P Narrative: * Left hip fracture-postop day 1. Doing well. * Pain management ongoing per orthopedics Hospitalist consult for management of medical issues * Uncomplicated UTI clinically improved on quinolones. Await cultures * Advanced dementia stable on home dose memantine, continue dementia care/delirium watch * DVT prophylaxis will be as per orthopedics Plan * Continue antibiotic coverage * Aggressive postop rehab * Case management coordinate SNF transfer * Pain management/DVT prophylaxis per orthopedics * Fall risk/delirium watch Time Spent With Patient Time: Total time spent is greater than 50% in coordination of care (as documented) at patient's floor/unit and/or counseling patient:
[2020-11-23] MEDS: HYDROcodone/APAP 5/325MG TABLET PO PRN ×2 (10:50→15:24)
--- NOTE | 2020-11-23 12:01 | Orthopedic Progress Note ---
SUBJECTIVE Subjective Patient information: Note initiated : 11/23/20 at 11:58 am Service Date, if different from initiated Date: [] Patient: Libia Lovell 70 y/o F admitted on 11/21/20 for fall. Chief Complaint: [Pt is stable this morning on post operative day without any significant concerns or complaints. Patients vital signs have remained stable. Patients dressing is dry and is grossly intact from a neurovascular and motor standpoint. Patients 10 point ROS is otherwise negative. Pt is fairly confused secondary to chronic dementia baseline and narcotics. ] Constitutional Vitals: Vital Signs Temp Pulse Resp BP Pulse Ox 98.2 F 85 20 114/67 92 11/23/20 07:18 11/23/20 07:18 11/23/20 07:18 11/23/20 07:18 11/23/20 07:18 Period Temp Pulse Resp BP Sys/Rodas Pulse Ox Last 24 Hr 98 F-98.5 F 62-85 16-20 109-140/56-75 90-94 Intake and Output 11/22/20 11/23/20 11/23/20 21:59 05:59 13:59 Intake Total 808 850 8811 Output Total 1400 Balance 320 -690 1150 Weight 79 lb Intake & Output: Intake & Output 11/22/20 11/23/20 11/23/20 21:59 05:59 13:59 Intake Total 205 370 9721 Output Total 1400 Balance 320 -690 1150 Weight 79 lb Intake: IV 250 1150 Sodium Chloride 0.9% 1,000 ml @ 1000 50 mls/hr IV .Q20H [facility] Rx#: [id number] Vancomycin 1,000 mg In Sodium 250 Chloride 0.9% 250 ml @ 250 mls/ hr IV ONCE [facility] Rx#:[id number] Oral 320 460 Output: Urine Catheter Amount 1400 Other: Meal Dinner Percent of Meal Consumed 75% Feeding Ability Total Assistance Urine Appearance Clear Clear Uretheral (Peterson) Clear Clear Urine Color Bright Yellow Straw Uretheral (Peterson) Straw Straw Urine Odor Normal Normal Uretheral (Peterson) Normal Normal Stool Size Smear Stool Color Brown # Voids 1 Extremities Exam Extremities exam: Present normal capillary refill, normal inspection, Foot pink and warm and neurovascular intact OBJ DATA Labs CBC & Chem 7: 11/23/20 05:47 11/23/20 05:47 Labs: Abnormal Lab Results 11/23/20 11/23/20 11/22/20 05:47 05:47 05:47 WBC RBC 3.16 L Hgb 9.1 L Hct 28.0 L RDW 15.3 H MPV Neut % (Auto) Lymph % (Auto) 14.2 L Lymph # (Auto) 1.32 L Absolute Neutrophils Anion Gap 6.0 L 6.0 L POC BUN Glucose 109 H 124 H POC Glucose Calcium 8.1 L 8.4 L POC WB Ioniz Calcium Lactate Dehydrogenase 264 H 285 H Total Protein 5.4 L Albumin 2.7 L 3.1 L Urine Appearance Urine Protein Ur Leukocyte Esterase Urine RBC Urine WBC Urine Bacteria Urine Mucus 11/22/20 11/21/20 11/21/20 05:47 22:03 22:02 WBC 14.2 H RBC 3.91 L Hgb 11.0 L 11.6 L Hct 34.6 L RDW 15.1 H 15.2 H MPV 10.7 H Neut % (Auto) 84.3 H 91.3 H Lymph % (Auto) 7.9 L 4.0 L Lymph # (Auto) 0.80 L 0.56 L Absolute Neutrophils 8.50 H 12.94 H Anion Gap POC BUN 25 H Glucose POC Glucose 136 H Calcium POC WB Ioniz Calcium 1.14 L Lactate Dehydrogenase Total Protein Albumin Urine Appearance Urine Protein Ur Leukocyte Esterase Urine RBC Urine WBC Urine Bacteria Urine Mucus 11/21/20 22:00 WBC RBC Hgb Hct RDW MPV Neut % (Auto) Lymph % (Auto) Lymph # (Auto) Absolute Neutrophils Anion Gap POC BUN Glucose POC Glucose Calcium POC WB Ioniz Calcium Lactate Dehydrogenase Total Protein Albumin Urine Appearance Cloudy A Urine Protein 30 A Ur Leukocyte Esterase 250 A Urine RBC 5 H Urine WBC > 182 H Urine Bacteria Many A Urine Mucus Many A Meds: Medications Acetaminophen (Acetaminophen 325 Mg Tablet) 650 mg PO Q4-6HP PRN; Protocol PRN Reason: Per Pain Protocol/Fever > 101 Hydrocodone Bitart/Acetaminophen (Hydrocodone/Apap 5/325mg Tablet) 0 tab PO Q4HP PRN; Protocol PRN Reason: Per Pain Protocol Last Admin: 11/23/20 10:50 Dose: 1 tab Documented by: Bisacodyl (Bisacodyl 10 Mg Supp.Rect) 10 mg [place] Q2-3DAYS PRN PRN Reason: Constipation Docusate Sodium (Docusate Sodium 100 Mg Capsule) 100 mg PO BID [facility] Last Admin: 11/23/20 09:02 Dose: 100 mg Documented by: Hydromorphone HCl (Hydromorphone 0.5 Mg/0.5 Ml Syringe) 0.25 - 0.5 mg IV Q4HP PRN; Protocol PRN Reason: Per Pain Protocol Last Admin: 11/22/20 18:39 Dose: 0.25 mg Documented by: Potassium Chloride 40 meq/ (Dextrose) 520 mls @ 130 mls/hr IV UD PRN PRN Reason: K+ = or < 3.5 Acetaminophen (Ofirmev) 650 mg in 65 mls @ 130 mls/hr IV Q6HP PRN; Protocol PRN Reason: Per Pain Protocol/Fever > 101 Magnesium Sulfate (Magnesium Sulfate) 2 gm in 50 mls @ 50 mls/hr IV UD PRN PRN Reason: MG = or < 1.7 Sodium Chloride (Sodium Chloride 0.9%) 1,000 mls @ 50 mls/hr IV .Q20H [facility] Stop: 11/24/20 11:23 Last Admin: 11/23/20 09:02 Dose: 50 mls/hr Documented by: Levofloxacin (Levaquin) 750 mg in 150 mls @ 100 mls/hr IV Q24H [facility] Last Infusion: 11/23/20 10:44 Dose: Infused Documented by: Iron Carb/Multivit/Grinding Machine Operator Portable/Folic Acid (Multivit,Ther Iron,Ca,Fa & Min 1 Tablet) 1 tab PO DAILY [facility] Last Admin: 11/23/20 09:01 Dose: 1 tab Documented by: Magnesium Hydroxide (Magnesium Hydroxide 30 Ml Oral.Susp) 30 ml PO BIDP PRN PRN Reason: Constipation Melatonin (Melatonin 3 Mg Tablet) 3 mg PO HSP PRN PRN Reason: Insomnia Methocarbamol (Methocarbamol 750 Mg Tablet) 750 mg PO Q6HP PRN PRN Reason: Muscle Spasm Ondansetron HCl (Ondansetron 4 Mg Odt Tablet) 4 mg SL Q4-6HP PRN; Protocol PRN Reason: Nausea And Vomiting Ondansetron HCl (Ondansetron 4 Mg/2 Ml Vial) 4 mg IV Q4-6HP PRN; Protocol PRN Reason: Nausea And Vomiting Polyethylene Glycol (Polyethylene Glycol 3350 17 Gm Packet) 17 gm PO DAILYP PRN PRN Reason: Constipation Potassium Chloride (Potassium Chloride 20 Meq Packet) 40 meq PO DAILYP PRN PRN Reason: K+ < 3.5 Senna (Sennosides 1 Tablet) 2 tab PO HS [facility] Last Admin: 11/22/20 20:12 Dose: 2 tab Documented by: Sodium Biphosphate/Sodium Phosphate (Fleets Adult Enema) 1 dose [place] Q3-4DAYS PRN PRN Reason: Constipation Sodium Chloride (0.9 % Sodium Chloride 10 Ml Syringe) 10 ml IV Q8 [facility] Last Admin: 11/23/20 04:36 Dose: Not Given Documented by: Throat Lozenges (Benzocaine/Menthol 1 Lozenge) 1 lozenge PO PRN PRN PRN Reason: Sore Throat A/P Narrative A/P Narrative: The patient has been educated regarding dressing care, Physical Therapy recommendations, home exercises, restrictions, and follow up appointments. The patient has had all necessary DME prescribed. The patient has remained relatively stable during their hospital course. We will continue SNF transfer as per Dr Sanchez reccomendlorna. Time Spent With Patient Time: Total time spent is greater than 50% in coordination of care (as documented) at patient's floor/unit and/or counseling patient: Total time spent with greater than 50% in coordination of care (as documented) at patient's floor/unit and/or counseling patient:: less than 15 minutes
[2020-11-23] MEDS: ACETAMINOPHEN 650 MG/65 ML BAG IV PRN (20:04)
[2020-11-23] MEDS: SENNOSIDES 1 TABLET PO SCH ×2 (22:29→22:56)
[2020-11-23] MEDS: MELATONIN 3 MG TABLET PO PRN (22:56)
[2020-11-23] MEDS: METHOCARBAMOL 750 MG TABLET PO PRN (22:56)
[2020-11-24] MEDS: ACETAMINOPHEN 650 MG/65 ML BAG IV PRN (03:09)
[2020-11-24] MEDS: 0.9 % SODIUM CHLORIDE 10 ML SYRINGE IV SCH ×3 (05:11→23:30)
[2020-11-24 09:30] LABS: Basophils # (Auto) 0.07 K/mcL (0.00-0.20); Basophils % (Auto) 0.9 % (0.0-2.0); Eosinophils # (Auto) 0.35 K/mcL (0.00-0.70); Eosinophils % (Auto) 4.5 % (0.0-7.0); Hematocrit 29.2 % (36.0-48.0); Hemoglobin 9.3 g/dL (12.0-15.0); Lymphocytes # (Auto) 1.19 K/mcL (1.50-4.80); Lymphocytes % (Auto) 15.2 % (15.0-49.0); Mean Cell Volume 90.1 fL (80.0-100.0); Mean Corpuscular HGB Conc 31.8 g/dL (31.0-36.0); Mean Platelet Volume 10.3 fL (7.4-10.4); Monocytes # (Auto) 0.57 K/mcL (0.10-0.90); Monocytes % (Auto) 7.3 % (1.0-12.0); Neutrophils % (Auto) 72.1 % (38.0-78.0); Platelet Count 258 K/mcL (140-440); RBC 3.24 M/mcL (4.00-5.20); Red Cell Distribution Width 15.3 % (11.5-14.5); WBC 7.8 K/mcL (4.5-11.0)
[2020-11-24 09:47] LABS: ALT/SGPT 22 U/L (<40); AST/SGOT 32 U/L (<32); Albumin 2.7 gm/dL (3.2-5.2); Alkaline Phosphatase 93 U/L (39-117); Bilirubin,Direct < 0.2 mg/dL (0-0.3); Bilirubin,Total 0.2 mg/dL (0.1-1.0); Blood Urea Nitrogen 12 mg/dL (8-23); Calcium 8.2 mg/dL (8.6-10.4); Carbon Dioxide 26 mmol/L (22-30); Chloride 108 mmol/L (96-108); Globulin 2.7 gm/dL (2.2-3.7); Glomerular Filtration Rate 92; Glucose 91 mg/dL (70-105); Lactate Dehydrogenase 265 U/L (135-225); Phosphorous 2.5 mg/dL (2.5-4.5); Triglycerides 88 mg/dL (<150); Uric Acid 2.3 mg/dL (2.5-8.0)
[2020-11-24] MEDS: METHOCARBAMOL 750 MG TABLET PO PRN (09:52)
[2020-11-24] MEDS: DOCUSATE SODIUM 100 MG CAPSULE PO SCH ×3 (09:52→21:56)
[2020-11-24] MEDS: LEVOFLOXACIN 750 MG/150 ML BAG IV SCH (09:52)
[2020-11-24] MEDS: MULTIVIT,THER IRON,CA,FA & MIN 1 TABLET PO SCH (09:52)
[2020-11-24 10:05] LABS: Prothrombin Time 13.1 sec (11.9-14.5)
[2020-11-24] MEDS: HYDROcodone/APAP 5/325MG TABLET PO PRN ×3 (12:10→21:43)
--- NOTE | 2020-11-24 15:23 | Internal Med Progress Note ---
SUBJECTIVE Subjective Patient information: Note initiated : 11/24/20 at 3:15 pm Service Date, if different from initiated Date: [] Patient: Libia Lovell 70 y/o F admitted on 11/21/20 for fall. Chief Complaint: [Right hip fracture s/p right hip ORIF] Overnight: afebrile. No fall. No other major overnight events. Subjective: Not obtained due to clinical situations. Constitutional Vitals: Vital Signs Temp Pulse Resp BP Pulse Ox 35.9 C L 93 H 16 153/84 97 11/24/20 07:33 11/24/20 08:00 11/24/20 07:33 11/24/20 07:33 11/24/20 07:33 Period Temp Pulse Resp BP Sys/Rodas Pulse Ox Last 24 Hr 35.9 C-37.2 C 87-107 16-18 118-153/65-84 95-98 Intake and Output 11/24/20 11/24/20 11/24/20 05:59 13:59 21:59 Intake Total 1065 990 Output Total 1200 Balance -135 990 Weight 38.51 kg Patient Weight 11/25/20 05:59 Weight 38.51 kg Intake & Output: Intake & Output 11/24/20 11/24/20 11/24/20 05:59 13:59 21:59 Intake Total 1065 990 Output Total 1200 Balance -135 990 Weight 38.51 kg Intake: IV 1065 150 Sodium Chloride 0.9% 1,000 ml @ 1000 50 mls/hr IV .Q20H [facility] Rx#: [id number] Oral 840 Output: Urine Catheter Amount 1200 Other: Meal Breakfast Percent of Meal Consumed 100% Stool Size Large # of times incontinent of 2 Bowels General appearance: cooperative and no acute distress Head Head exam: Present atraumatic and normocephalic Eye Eye exam: Present EOMI and PERRL ENT ENT exam: Present mucous membranes moist, normal exam and normal external ear exam Neck Neck exam: Present normal inspection; Absent lymphadenopathy, tenderness and thyromegaly Respiratory Respiratory exam: Absent accessory muscle use, respiratory distress and wheezes Cardiovascular Cardiovascular exam: Present normal rate and rhythm; Absent JVD GI/Abdominal GI/Abdominal exam: Present normal bowel sounds and soft; Absent organomegaly and tenderness Extremities Exam Extremities exam: Present full ROM and normal capillary refill; Absent normal inspection and tenderness Additional comments: Right hip with surgical dressing, clean. Active and passive range of motion limited by pain. Neurological Exam Neurological exam: Present alert and CN II-XII intact; Absent motor sensory deficit and oriented X3 Additional comments: orientation cannot be assessed due to clinical situations Psychiatric Psychiatric exam: Present normal affect and normal mood; Absent anxious and depressed Skin Skin exam: Present dry and intact OBJ DATA Labs CBC & Chem 7: 11/24/20 05:05 11/24/20 05:05 Labs: Abnormal Lab Results 11/24/20 11/24/20 11/23/20 05:05 05:05 05:47 WBC RBC 3.24 L Hgb 9.3 L Hct 29.2 L RDW 15.3 H MPV Neut % (Auto) Lymph % (Auto) Lymph # (Auto) 1.19 L Absolute Neutrophils Anion Gap 5.0 L 6.0 L POC BUN Glucose 109 H POC Glucose Uric Acid 2.3 L Calcium 8.2 L 8.1 L POC WB Ioniz Calcium AST 32 H Lactate Dehydrogenase 265 H 264 H Total Protein 5.4 L 5.4 L Albumin 2.7 L 2.7 L Urine Appearance Urine Protein Ur Leukocyte Esterase Urine RBC Urine WBC Urine Bacteria Urine Mucus 11/23/20 11/22/20 11/22/20 05:47 05:47 05:47 WBC RBC 3.16 L 3.91 L Hgb 9.1 L 11.0 L Hct 28.0 L 34.6 L RDW 15.3 H 15.1 H MPV Neut % (Auto) 84.3 H Lymph % (Auto) 14.2 L 7.9 L Lymph # (Auto) 1.32 L 0.80 L Absolute Neutrophils 8.50 H Anion Gap 6.0 L POC BUN Glucose 124 H POC Glucose Uric Acid Calcium 8.4 L POC WB Ioniz Calcium AST Lactate Dehydrogenase 285 H Total Protein Albumin 3.1 L Urine Appearance Urine Protein Ur Leukocyte Esterase Urine RBC Urine WBC Urine Bacteria Urine Mucus 11/21/20 11/21/20 11/21/20 22:03 22:02 22:00 WBC 14.2 H RBC Hgb 11.6 L Hct RDW 15.2 H MPV 10.7 H Neut % (Auto) 91.3 H Lymph % (Auto) 4.0 L Lymph # (Auto) 0.56 L Absolute Neutrophils 12.94 H Anion Gap POC BUN 25 H Glucose POC Glucose 136 H Uric Acid Calcium POC WB Ioniz Calcium 1.14 L AST Lactate Dehydrogenase Total Protein Albumin Urine Appearance Cloudy A Urine Protein 30 A Ur Leukocyte Esterase 250 A Urine RBC 5 H Urine WBC > 182 H Urine Bacteria Many A Urine Mucus Many A Meds: Medications Acetaminophen (Acetaminophen 325 Mg Tablet) 650 mg PO Q4-6HP PRN; Protocol PRN Reason: Per Pain Protocol/Fever > 101 Hydrocodone Bitart/Acetaminophen (Hydrocodone/Apap 5/325mg Tablet) 0 tab PO Q4HP PRN; Protocol PRN Reason: Per Pain Protocol Last Admin: 11/24/20 12:10 Dose: 1 tab Documented by: Bisacodyl (Bisacodyl 10 Mg Supp.Rect) 10 mg [place] Q2-3DAYS PRN PRN Reason: Constipation Docusate Sodium (Docusate Sodium 100 Mg Capsule) 100 mg PO BID [facility] Last Admin: 11/24/20 09:54 Dose: Not Given Documented by: Hydromorphone HCl (Hydromorphone 0.5 Mg/0.5 Ml Syringe) 0.25 - 0.5 mg IV Q4HP PRN; Protocol PRN Reason: Per Pain Protocol Last Admin: 11/22/20 18:39 Dose: 0.25 mg Documented by: Potassium Chloride 40 meq/ (Dextrose) 520 mls @ 130 mls/hr IV UD PRN PRN Reason: K+ = or < 3.5 Acetaminophen (Ofirmev) 650 mg in 65 mls @ 130 mls/hr IV Q6HP PRN; Protocol PRN Reason: Per Pain Protocol/Fever > 101 Last Infusion: 11/24/20 05:11 Dose: Infused Documented by: Magnesium Sulfate (Magnesium Sulfate) 2 gm in 50 mls @ 50 mls/hr IV UD PRN PRN Reason: MG = or < 1.7 Levofloxacin (Levaquin) 750 mg in 150 mls @ 100 mls/hr IV Q24H [facility] Last Infusion: 11/24/20 11:22 Dose: Infused Documented by: Iron Carb/Multivit/[place]/Folic Acid (Multivit,Ther Iron,Ca,Fa & Min 1 Tablet) 1 tab PO DAILY [facility] Last Admin: 11/24/20 09:52 Dose: 1 tab Documented by: Magnesium Hydroxide (Magnesium Hydroxide 30 Ml Oral.Susp) 30 ml PO BIDP PRN PRN Reason: Constipation Melatonin (Melatonin 3 Mg Tablet) 3 mg PO HSP PRN PRN Reason: Insomnia Last Admin: 11/23/20 22:56 Dose: 3 mg Documented by: Methocarbamol (Methocarbamol 750 Mg Tablet) 750 mg PO Q6HP PRN PRN Reason: Muscle Spasm Last Admin: 11/24/20 09:52 Dose: 750 mg Documented by: Ondansetron HCl (Ondansetron 4 Mg Odt Tablet) 4 mg SL Q4-6HP PRN; Protocol PRN Reason: Nausea And Vomiting Ondansetron HCl (Ondansetron 4 Mg/2 Ml Vial) 4 mg IV Q4-6HP PRN; Protocol PRN Reason: Nausea And Vomiting Polyethylene Glycol (Polyethylene Glycol 3350 17 Gm Packet) 17 gm PO DAILYP PRN PRN Reason: Constipation Potassium Chloride (Potassium Chloride 20 Meq Packet) 40 meq PO DAILYP PRN PRN Reason: K+ < 3.5 Senna (Sennosides 1 Tablet) 2 tab PO HS [facility] Last Admin: 11/23/20 22:56 Dose: 2 tab Documented by: Sodium Biphosphate/Sodium Phosphate (Fleets Adult Enema) 1 dose [place] Q3-4DAYS PRN PRN Reason: Constipation Sodium Chloride (0.9 % Sodium Chloride 10 Ml Syringe) 10 ml IV Q8 [facility] Last Admin: 11/24/20 05:11 Dose: Not Given Documented by: Throat Lozenges (Benzocaine/Menthol 1 Lozenge) 1 lozenge PO PRN PRN PRN Reason: Sore Throat A/P Assessment and plan (1) Closed hip fracture: Status: Acute Qualifiers: Encounter type: initial encounter Laterality: left Qualified Code(s): S72.002A - Fracture of unspecified part of neck of left femur, initial encounter for closed fracture (2) Alzheimer's dementia with behavioral disturbance: Status: Acute Comment: requires multiple redirections for behavior modification Qualifiers: Alzheimer's disease onset: early-onset Qualified Code(s): G30.0 - Alzheimer's disease with early onset; F02.81 - Dementia in other diseases classified elsewhere with behavioral disturbance (3) E. coli UTI: Status: Acute Narrative A/P Narrative: 1. Right hip closed fracture s/p right hip ORIF: Pain control with IV Tylenol PRN mild pain, [place] PRN moderate pain, Dilaudid IV PRN severe pain PT OT evaluation and treatment, recs. SNF placement upon discharge 2. E coli UTI: Pending urine culture final results with sensitivity Levaquin IV for now, will switch to something orally such as Augmentin upon discharge to SNF 3. Alzheimer's Dementia: Continue to monitor for symptoms progression Time Spent With Patient Time: Total time spent is greater than 50% in coordination of care (as document ed) at patient's floor/unit and/or counseling patient:
[2020-11-24] MEDS: MELATONIN 3 MG TABLET PO PRN (21:44)
[2020-11-24] MEDS: SENNOSIDES 1 TABLET PO SCH (21:56)
[2020-11-25] MEDS: 0.9 % SODIUM CHLORIDE 10 ML SYRINGE IV SCH (05:22)
[2020-11-25 08:23] LABS: Basophils # (Auto) 0.06 K/mcL (0.00-0.20); Basophils % (Auto) 0.9 % (0.0-2.0); Eosinophils # (Auto) 0.37 K/mcL (0.00-0.70); Eosinophils % (Auto) 5.3 % (0.0-7.0); Hemoglobin 9.4 g/dL (12.0-15.0); Lymphocytes # (Auto) 1.34 K/mcL (1.50-4.80); Lymphocytes % (Auto) 19.3 % (15.0-49.0); Mean Cell Volume 88.4 fL (80.0-100.0); Mean Corpuscular HGB Conc 32.4 g/dL (31.0-36.0); Mean Platelet Volume 10.1 fL (7.4-10.4); Monocytes # (Auto) 0.57 K/mcL (0.10-0.90); Monocytes % (Auto) 8.2 % (1.0-12.0); Neutrophils % (Auto) 66.3 % (38.0-78.0); Platelet Count 296 K/mcL (140-440); RBC 3.28 M/mcL (4.00-5.20); Red Cell Distribution Width 14.9 % (11.5-14.5)
--- NOTE | 2020-11-25 08:26 | Operative Note ---
DATE OF OPERATION: 11/22/2020 PREOPERATIVE DIAGNOSIS: Left hip femoral neck fracture. This is transcervical displaced femoral neck. POSTOPERATIVE DIAGNOSIS: Left hip femoral neck fracture. This is transcervical displaced femoral neck. OPERATION PROPOSED: Left hip hemiarthroplasty. OPERATION PERFORMED: Left hip hemiarthroplasty. SURGEON: Terrence Sanchez M.D. [employer] OPERATOR: Spencer Arevalo PA-C. The PA's assistance was required for the safe and efficient completion of the entire case. This provider's expertise and technical skill were required throughout the case. The PA assisted with preoperative coordination, intraoperative retraction, wound closure, dressing and splint application, as well as postoperative documentation and care coordination. INDICATIONS: This is an elderly lady who has a displaced femoral neck fracture in need of operative treatment. OPERATION IN DETAIL: Informed consent was obtained. She was taken to the operating room where she was provided with appropriate anesthetic and prophylactic antibiotics and carefully positioned. Her left lower extremity was prepped sterilely. A standard posterior approach to the hip was performed. I advanced through the iliotibial band. I cut and released the short external rotators. The hip capsule was cut and T'd. I then exposed the fracture of the femoral head and neck. The femoral head was removed and sized. I then sequentially reamed and broached the canal. The canal was prepped with a brush. Distal cement restrictor was applied. I irrigated the canal and we then dried the canal. Cement was applied. I cemented and placed a size 6 fracture stem from [employer]. This was prepared with a head ball and a +0 neck. This was reduced into position. The hip seemed very stable. The hip capsule was repaired as was the iliotibial band with 2-0 inverted deep dermal and martin in the skin. Procedure was tolerated well with no complications. Estimated blood loss was 50 to 75 mL. GDD:[email or web address] Job ID: [id number] Doc ID: [id number] Terrence Sanchez MD
[2020-11-25 08:36] LABS: ALT/SGPT 24 U/L (<40); AST/SGOT 36 U/L (<32); Albumin 2.8 gm/dL (3.2-5.2); Alkaline Phosphatase 104 U/L (39-117); Bilirubin,Direct < 0.2 mg/dL (0-0.3); Bilirubin,Total 0.3 mg/dL (0.1-1.0); Blood Urea Nitrogen 7 mg/dL (8-23); Calcium 8.2 mg/dL (8.6-10.4); Carbon Dioxide 26 mmol/L (22-30); Chloride 105 mmol/L (96-108); Globulin 2.9 gm/dL (2.2-3.7); Glomerular Filtration Rate 92; Glucose 92 mg/dL (70-105); Lactate Dehydrogenase 304 U/L (135-225); Phosphorous 3.3 mg/dL (2.5-4.5); Triglycerides 115 mg/dL (<150); Uric Acid 2.4 mg/dL (2.5-8.0)
[2020-11-25 08:45] LABS: Prothrombin Time 13.7 sec (11.9-14.5)
--- NOTE | 2020-11-25 09:17 | Discharge Summary ---
Discharge Provider Provider Patient information: Note initiated : 11/25/20 at 9:12 am Service Date, if different from initiated Date: [] Patient: Libia Lovell 70 y/o F admitted on 11/21/20 for fall. Chief Complaint: [] Date of admission: 11/21/20 23:05 Discharge date: 11/25/20 Primary care physician: Wojciech Wang M.D., F.A.A.F.P. Consults: 11/22/20 07:45 Consult to Physician [CONS] Routine Comment: late order Consulting Provider: Terrence Sanchez Reason For Exam: Physician to Consult Discharge Meds Discharge Medications Home Medications acetaminophen 325 mg capsule 325 mg PO QDAY PRN cap 05/24/18 [History Confirmed 11/21/20 Last Taken Unknown] food supplemt, lactose-reduced 1 each PO BID #472 ml 07/04/18 [Rx Confirmed 11/22/20 Last Taken Unknown] memantine 10 mg tablet 10 mg PO BID #180 tab 07/06/20 [Rx Confirmed 11/21/20 Last Taken Unknown] aspirin [Adult Aspirin Regimen] 81 mg PO QDAY #30 tab 11/25/20 [Rx Last Taken Unknown] docusate sodium [DOK] 100 mg PO BID #20 cap 11/25/20 [Rx Last Taken Unknown] hydrocodone-acetaminophen 1 tab PO Q4HP PRN #20 tab 11/25/20 [Rx Last Taken Unknown] levofloxacin 750 mg PO QDAY #4 tab 11/25/20 [Rx Last Taken Unknown] sennosides [Senna Lax] 8.6 mg PO HS #10 tab 11/25/20 [Rx Last Taken Unknown] COURSE Hospital Course Hospital course: Patient had an accidental fall, and resultant right hip fracture. Orthopedic surgeon was consulted, who performed right hip ORIF. Patient tolerated the surgery and had a relatively uncomplicated course of recovery. Narcotics were provided for symptoms relief. Physical and occupational therapies were consulted to evaluate the patient and recommended SNF placement upon discharged. UTI was also being diagnosed and urine culture grew E coli. Levaquin IV was started. On 11/25/20, patient had reached clinical stability, and the decision was made to discharge her to SNF with Rx including oral Levaquin, [place], Aspirin, and stool softener sent. All questions were answered prior to patient being physically discharged. Discharge diagnosis: right hip fracture; E coli Urinary tract infection Time Spent with Patient Time attestation: Total time spent providing and/or coordinating discharge services: EXAM Constitutional Vitals: Temp Pulse Resp BP Pulse Ox 37.4 C H 94 H 20 129/77 96 11/25/20 08:00 11/25/20 08:00 11/25/20 08:00 11/25/20 08:00 11/25/20 08:00 General appearance: cooperative and no acute distress Head Head exam: Present atraumatic and normocephalic Eye Eye exam: Present EOMI and PERRL ENT ENT exam: Present mucous membranes moist, normal exam and normal external ear exam Neck Neck exam: Present normal inspection; Absent lymphadenopathy, tenderness and thyromegaly Respiratory Respiratory exam: Absent accessory muscle use, respiratory distress and wheezes Cardiovascular Cardiovascular exam: Present normal rate and rhythm; Absent JVD GI/Abdominal GI/Abdominal exam: Present normal bowel sounds and soft; Absent organomegaly and tenderness Extremities Exam Extremities exam: Present full ROM and normal capillary refill; Absent tenderness Additional comments: Right hip surgical dressing in place. Neurological Exam Neurological exam: Present alert, CN II-XII intact and oriented X3; Absent motor sensory deficit Psychiatric Psychiatric exam: Present normal affect and normal mood; Absent anxious and depressed Skin Skin exam: Present dry and intact Discharge Data Data Completed and Pending Labs on day of discharge: Labs from last 24 hours 11/25/20 11/25/20 11/25/20 06:11 06:11 06:11 WBC RBC Hgb TNP Hct TNP MCV MCH MCHC RDW Plt Count MPV Neut % (Auto) Lymph % (Auto) [place] % (Auto) Eos % (Auto) Baso % (Auto) Lymph # (Auto) [place] # (Auto) Eos # (Auto) Baso # (Auto) Absolute Neutrophils PT 13.7 INR 1.0 Sodium 139 Potassium 4.3 Chloride 105 Carbon Dioxide 26 Anion Gap 8.0 BUN 7 L Creatinine 0.6 GFR Calculation 92 Glucose 92 Uric Acid 2.4 L Calcium 8.2 L Phosphorus 3.3 Magnesium 2.0 Total Bilirubin 0.3 Direct Bilirubin < 0.2 GGT 14 AST 36 H ALT 24 Alkaline Phosphatase 104 Lactate Dehydrogenase 304 H Total Protein 5.7 L Albumin 2.8 L Globulin 2.9 Albumin/Globulin Ratio 1.0 Triglycerides 115 11/25/20 11/24/20 11/24/20 06:11 05:05 05:05 WBC 7.0 RBC 3.28 L Hgb 9.4 L TNP Hct 29.0 L TNP MCV 88.4 MCH 28.7 MCHC 32.4 RDW 14.9 H Plt Count 296 MPV 10.1 Neut % (Auto) 66.3 Lymph % (Auto) 19.3 [place] % (Auto) 8.2 Eos % (Auto) 5.3 Baso % (Auto) 0.9 Lymph # (Auto) 1.34 L [place] # (Auto) 0.57 Eos # (Auto) 0.37 Baso # (Auto) 0.06 Absolute Neutrophils 4.62 PT 13.1 INR 1.0 Sodium Potassium Chloride Carbon Dioxide Anion Gap BUN Creatinine GFR Calculation Glucose Uric Acid Calcium Phosphorus Magnesium Total Bilirubin Direct Bilirubin GGT AST ALT Alkaline Phosphatase Lactate Dehydrogenase Total Protein Albumin Globulin Albumin/Globulin Ratio Triglycerides 11/24/20 11/24/20 05:05 05:05 WBC 7.8 RBC 3.24 L Hgb 9.3 L Hct 29.2 L MCV 90.1 MCH 28.7 MCHC 31.8 RDW 15.3 H Plt Count 258 MPV 10.3 Neut % (Auto) 72.1 Lymph % (Auto) 15.2 [place] % (Auto) 7.3 Eos % (Auto) 4.5 Baso % (Auto) 0.9 Lymph # (Auto) 1.19 L [place] # (Auto) 0.57 Eos # (Auto) 0.35 Baso # (Auto) 0.07 Absolute Neutrophils 5.63 PT INR Sodium 139 Potassium 4.1 Chloride 108 Carbon Dioxide 26 Anion Gap 5.0 L BUN 12 Creatinine 0.6 GFR Calculation 92 Glucose 91 Uric Acid 2.3 L Calcium 8.2 L Phosphorus 2.5 Magnesium 2.0 Total Bilirubin 0.2 Direct Bilirubin < 0.2 GGT 12 AST 32 H ALT 22 Alkaline Phosphatase 93 Lactate Dehydrogenase 265 H Total Protein 5.4 L Albumin 2.7 L Globulin 2.7 Albumin/Globulin Ratio 1.0 Triglycerides 88 Discharge Plan Patient/Caregiver Discharge Instructions Activity: as per physical therapy Diet: Regular Diet Instructions: Hip Sprain, Pyrotechnics Press Tender (GEN) Prescriptions: New docusate sodium [DOK] 100 mg Capsule 100 mg PO BID Qty: 20 RF: 1 sennosides [Senna Lax] 8.6 mg Tablet 8.6 mg PO HS Qty: 10 RF: 1 hydrocodone-acetaminophen 5-325 mg Tablet 1 tab PO Q4HP PRN (Reason: Per Pain Protocol) Qty: 20 RF: 0 levofloxacin 750 mg tablet 750 mg PO QDAY Qty: 4 RF: 0 aspirin [Adult Aspirin Regimen] 81 mg tablet,delayed release (DR/EC) 81 mg PO QDAY Qty: 30 RF: 0 Continued memantine 10 mg tablet 10 mg PO BID Qty: 180 RF: 1 acetaminophen [Tylenol] 325 mg capsule 325 mg PO QDAY PRN (Reason: Pain) RF: 0 food supplemt, lactose-reduced [Ensure] liquid 1 each PO BID Qty: 472 RF: 0 Follow Up Plan Follow up with: Wojciech Wang MD, FAAFP [Primary Care Provider] - Patient Disposition: Xfer SNF Prognosis: Fair Discharge Orders: Discharge Order (Routine); Ordered 11/25/20 Ordered By: Sergio Mustafa
[2020-11-25] MEDS: HYDROcodone/APAP 5/325MG TABLET PO PRN (09:25)
[2020-11-25] MEDS: DOCUSATE SODIUM 100 MG CAPSULE PO SCH (09:59)
[2020-11-25] MEDS: MULTIVIT,THER IRON,CA,FA & MIN 1 TABLET PO SCH (09:59)
[2020-11-25] MEDS: LEVOFLOXACIN 750 MG/150 ML BAG IV SCH (09:59)
== END 2020-11-25 12:20 | DRG 522 ==
LOC: ED 20:05 → SUATTDRO 23:05 → MEDSUR 23:05
PROVIDERS: ADMIT Internal Medicine; ATTEND Internal Medicine

== ENCOUNTER 2021-01-20 07:22 | Inpatient (IN) ==
--- NOTE | 2021-01-20 07:50 | Emergency Department Note ---
Fall HPI General Chief Complaint: Fall Stated Complaint: fall Time Seen by Provider: 01/20/21 07:45 Source: patient Mode of arrival: ambulatory History of Present Illness HPI Narrative: Narrative: Presents to room T5 via EMS for evaluation of potential fall. The patient has dementia and lives at home with her . It is reported by the patient's daughter who is at bedside, that the patient's found the patient in the kitchen on the floor moaning this morning. It is unclear how she got from the bed to the kitchen. The patient has some swelling and ecchymosis over the left hip however the daughter reports that this may have existed prior to this morning. There is no obvious head injury. The patient does have skin tears to the upper extremities bilaterally. The patient's daughter is concerned that she may have a urinary tract infection. Further history is limited secondary to the patient's underlying dementia. Related Data Home Medications Medication Instructions Recorded Confirmed acetaminophen 325 mg capsule 325 mg PO QDAY PRN cap 05/24/18 01/20/21 Previous Rx's Medication Instructions Recorded food supplemt, lactose-reduced 1 each PO BID #472 ml 07/04/18 memantine 10 mg tablet 10 mg PO BID #180 tab 07/06/20 aspirin [Ecotrin Low Strength] 81 mg PO BID #56 tab 11/25/20 docusate sodium [DOK] 100 mg PO BID #20 cap 11/25/20 hydrocodone-acetaminophen 1 tab PO Q4H PRN #20 tab 11/25/20 levofloxacin 750 mg PO QDAY #4 tab 11/25/20 sennosides [Senna Lax] 8.6 mg PO HS #10 tab 11/25/20 Allergies Allergy/AdvReac Type Severity Reaction Status Date / Time Cephalosporins Allergy Unknown Cardiac Verified 01/20/21 07:29 arrest ibuprofen Allergy Unknown Cardiac Verified 01/20/21 07:29 arrest levofloxacin [From Levaquin] Allergy Unknown Unknown Verified 01/20/21 07:29 Penicillins Allergy Unknown Unknown Verified 01/20/21 07:29 Review of Systems ROS ROS Narrative: Narrative: All systems ED: reviewed and negative except as stated. PFSH Narrative Patient History Narrative: Narrative: Medical/Surgical/Family History All Active Problems (Updated 01/20/21 @ 10:19 by Maxi Pugh MD) Closed hip fracture (Acute) E. coli UTI (Acute) Closed hip fracture (Acute) Medicare annual wellness visit, initial (Acute) Cachexia (Acute) Alzheimer's dementia with behavioral disturbance (Acute) Osteoporosis (Acute) COPD (chronic obstructive pulmonary disease) (Chronic) Alzheimers disease (Chronic) COPD (chronic obstructive pulmonary disease) (Acute) Migraine (Chronic) Chronic sinusitis (Chronic) Surgical menopause (Chronic) Brachial plexopathy (Chronic) Medical History (Updated 01/20/21 @ 10:19 by Maxi Pugh MD) Alzheimer's dementia with behavioral disturbance requires multiple redirections for behavior modification Alzheimers disease 2012 Brachial plexopathy Chronic sinusitis COPD (chronic obstructive pulmonary disease) Medicare annual wellness visit, initial Migraine Surgical menopause Surgical History History of fusion of cervical spine History of hysterectomy History of sinus surgery Britton's neuroma Family History Unknown Benign neoplasm Essential hypertension Social History Smoking Status: Former smoker Alcohol Intake Frequency: does not drink Substance Use: does not use Exam Narrative Narrative: Narrative: General General appearance: Present alert and in no apparent distress Head Head: Present atraumatic, normocephalic and normal inspection Eye Eye: Present normal appearance and EOMI; Absent conjunctival injection ENT ENT: Present normal exam and mucous membranes moist Neck Neck: Present normal inspection and trachea midline Respiratory Respiratory: Present normal lung sounds bilaterally; Absent respiratory distress Cardiovascular Cardiovascular: Present regular rate, normal rhythm and normal heart sounds Adbominal Abdominal: Present soft; Absent distention, tenderness, guarding and rebound Extremities Extremities: Absent normal inspection (There are diffuse skin tears noted on the forearms bilaterally.) and tenderness Back Back: Present normal inspection; Absent tenderness Neurological Neurological: Present alert, CN II-XII intact and other (Neurologic exam is limited secondary to the patient's underlying dementia, the patient is at baseline level of interaction and function. There are no obvious focal deficits identified); Absent motor sensory deficit Psychiatric Psychiatric: Present normal affect and normal mood Skin Skin: Present warm (WNL) and dry; Absent rash Course Vital Signs Vital signs: Vital Signs Temperature 97.6 F 01/20/21 07:25 Pulse Rate 62 01/20/21 07:25 Respiratory Rate 16 01/20/21 07:25 Blood Pressure 141/76 01/20/21 07:25 Pulse Oximetry (%) 96 01/20/21 07:25 Temperature 97.6 F 01/20/21 07:25 Pulse Rate 55 L 01/20/21 10:01 Respiratory Rate 16 01/20/21 07:25 Blood Pressure 146/83 01/20/21 10:01 Pulse Oximetry (%) 96 01/20/21 10:01 [facility] MDM Narrative Medical decision making narrative: Narrative: The patient presents for evaluation of unwitnessed fall. The patient's x-ray of the pelvis confirms impacted right femoral neck fracture. Chest x-ray is unremarkable. Labs are unremarkable. EKG shows no evidence of acute injury or ischemia. I did discuss the case with the on-call surgeon, Dr. Borrego. He is agreed to consult. I have also discussed the case with the admitting hospitalist, Dr. Bain. He is excepted the patient for admission Lab Data Lab results reviewed: Yes I reviewed the patient's lab results. Result diagrams: 01/20/21 08:19 01/20/21 08:19 Labs: Lab Results 01/20/21 01/20/21 01/20/21 Range/Units 08:19 08:19 08:19 WBC 8.5 (4.5-11.0) K/mcL RBC 3.78 L (4.00-5.20) M/mcL Hgb 10.7 L (12.0-15.0) g/dL Hct 34.0 L (36.0-48.0) % MCV 89.9 (80.0-100.0) fL MCH 28.3 (26.0-34.0) pg MCHC 31.5 (31.0-36.0) g/dL RDW 15.1 H (11.5-14.5) % Plt Count 344 (140-440) K/mcL MPV 9.4 (7.4-10.4) fL Neut % (Auto) 78.8 H (38.0-78.0) % Lymph % (Auto) 14.0 L (15.0-49.0) % [place] % (Auto) 5.5 (1.0-12.0) % Eos % (Auto) 1.1 (0.0-7.0) % Baso % (Auto) 0.6 (0.0-2.0) % Lymph # (Auto) 1.19 L (1.50-4.80) K/mcL [place] # (Auto) 0.47 (0.10-0.90) K/mcL Eos # (Auto) 0.09 (0.00-0.70) K/mcL Baso # (Auto) 0.05 (0.00-0.20) K/mcL Absolute Neutrophils 6.70 (1.80-8.00) K/mcL Sodium 137 (133-145) mmol/L Potassium 4.5 (3.3-5.1) mmol/L Chloride 103 (96-108) mmol/L Carbon Dioxide 28 (22-30) mmol/L Anion Gap 6.0 L (8.0-16.0) BUN 13 (8-23) mg/dL Creatinine 0.7 (0.6-1.1) mg/dL GFR Calculation 87 Glucose 90 (70-105) mg/dL Calcium 8.6 (8.6-10.4) mg/dL Total Bilirubin < 0.2 (0.1-1.0) mg/dL AST 18 (<32) U/L ALT 12 (<40) U/L Alkaline Phosphatase 152 H (39-117) U/L Total Creatine Kinase 98 (24-170) U/L Troponin T (<0.03) ng/mL Total Protein 6.8 (5.9-8.4) gm/dL Albumin 3.5 (3.2-5.2) gm/dL Globulin 3.3 (2.2-3.7) gm/dL Albumin/Globulin Ratio 1.1 (1.0-2.3) 16 Range/Units 08:19 WBC (4.5-11.0) K/mcL RBC (4.00-5.20) M/mcL Hgb (12.0-15.0) g/dL Hct (36.0-48.0) % MCV (80.0-100.0) fL MCH (26.0-34.0) pg MCHC (31.0-36.0) g/dL RDW (11.5-14.5) % Plt Count (140-440) K/mcL MPV (7.4-10.4) fL Neut % (Auto) (38.0-78.0) % Lymph % (Auto) (15.0-49.0) % [place] % (Auto) (1.0-12.0) % Eos % (Auto) (0.0-7.0) % Baso % (Auto) (0.0-2.0) % Lymph # (Auto) (1.50-4.80) K/mcL [place] # (Auto) (0.10-0.90) K/mcL Eos # (Auto) (0.00-0.70) K/mcL Baso # (Auto) (0.00-0.20) K/mcL Absolute Neutrophils (1.80-8.00) K/mcL Sodium (133-145) mmol/L Potassium (3.3-5.1) mmol/L Chloride (96-108) mmol/L Carbon Dioxide (22-30) mmol/L Anion Gap (8.0-16.0) BUN (8-23) mg/dL Creatinine (0.6-1.1) mg/dL GFR Calculation Glucose (70-105) mg/dL Calcium (8.6-10.4) mg/dL Total Bilirubin (0.1-1.0) mg/dL AST (<32) U/L ALT (<40) U/L Alkaline Phosphatase (39-117) U/L Total Creatine Kinase (24-170) U/L Troponin T < 0.01 (<0.03) ng/mL Total Protein (5.9-8.4) gm/dL Albumin (3.2-5.2) gm/dL Globulin (2.2-3.7) gm/dL Albumin/Globulin Ratio (1.0-2.3) Radiology Data Radiology results reviewed: Yes I reviewed the patient's radiology results. EKG Data EKG #1: EKG attestation: Yes I reviewed and interpreted this EKG., Yes There are no EKG findings of acute coronary syndrome and Yes This EKG will be read by customer care team coach EKG results narrative: Normal sinus rhythm, rate 66, normal ST segment, no ectopy, normal QRS Rhythm Strip Data Rhythm Strip Rate: 67 Interpretation: Sinus rhythm Pulse Oximetry Data Pulse Ox %: 96 Interpretation: Room air, normal Discharge Plan Patient/Caregiver Discharge Instructions Pt seen by [employer]ANCE [employer] S[employer]LE DRILLER/PA only: No Clinical Impression: Closed hip fracture Patient Disposition: Xfer As Inpt ([facility]) Follow up with: Wojciech Wang MD, FAAFP [Primary Care Provider] - Prescriptions: No Action memantine 10 mg tablet 10 mg PO BID Qty: 180 RF: 1 acetaminophen [Tylenol] 325 mg capsule 325 mg PO QDAY PRN (Reason: Pain) RF: 0 food supplemt, lactose-reduced [Ensure] liquid 1 each PO BID Qty: 472 RF: 0 docusate sodium [DOK] 100 mg Capsule 100 mg PO BID Qty: 20 RF: 1 sennosides [Senna Lax] 8.6 mg Tablet 8.6 mg PO HS Qty: 10 RF: 1 levofloxacin 750 mg tablet 750 mg PO QDAY Qty: 4 RF: 0 hydrocodone-acetaminophen 5-325 mg Tablet 1 tab PO Q4H PRN (Reason: Pain) Qty: 20 RF: 0 aspirin [Ecotrin Low Strength] 81 mg Tablet,Delayed Release (Dr/Ec) 81 mg PO BID Qty: 56 RF: 0
--- NOTE | 2021-01-20 08:43 | XRay Report ---
HISTORY: Fell FINDINGS: There is subtle interstitial lung disease in the right upper lobe which could be due to inflammation or fibrosis. Similar finding was present on 11/21/20. No acute pulmonary disease is seen. There is no pneumothorax, pleural effusion or widening of the mediastinum. The heart size is normal. No acute fracture is seen. There may be an old healed fracture the costochondral junction anteriorly in the right seventh rib. IMPRESSION: No acute abnormality Interpreted and Authenticated by: Venancio Giles 01/20/21
--- NOTE | 2021-01-20 08:44 | XRay Report ---
HISTORY: Fell FINDINGS: There is an acute transverse fracture through the neck of the right proximal femur. There is impaction. The femoral head remains normally aligned with the acetabulum and the joint space is normal in width. Patient has underlying osteoporosis. There is a well-positioned left hip prosthesis. The pelvic bones appear intact. IMPRESSION: Fractured right femoral neck Interpreted and Authenticated by: Venancio Giles 01/20/21
[2021-01-20 09:03] LABS: Basophils # (Auto) 0.05 K/mcL (0.00-0.20); Basophils % (Auto) 0.6 % (0.0-2.0); Eosinophils # (Auto) 0.09 K/mcL (0.00-0.70); Eosinophils % (Auto) 1.1 % (0.0-7.0); Hemoglobin 10.7 g/dL (12.0-15.0); Lymphocytes # (Auto) 1.19 K/mcL (1.50-4.80); Mean Cell Volume 89.9 fL (80.0-100.0); Mean Corpuscular HGB Conc 31.5 g/dL (31.0-36.0); Mean Platelet Volume 9.4 fL (7.4-10.4); Monocytes # (Auto) 0.47 K/mcL (0.10-0.90); Monocytes % (Auto) 5.5 % (1.0-12.0); Neutrophils % (Auto) 78.8 % (38.0-78.0); Platelet Count 344 K/mcL (140-440); RBC 3.78 M/mcL (4.00-5.20); Red Cell Distribution Width 15.1 % (11.5-14.5); WBC 8.5 K/mcL (4.5-11.0)
[2021-01-20] MEDS ORDERED: fentaNYL 100 MCG/2 ML VIAL IV ONE ×3 (09:17→15:53)
[2021-01-20 09:27] LABS: ALT/SGPT 12 U/L (<40); AST/SGOT 18 U/L (<32); Albumin 3.5 gm/dL (3.2-5.2); Albumin/Globulin Ratio 1.1 (1.0-2.3); Alkaline Phosphatase 152 U/L (39-117); Bilirubin,Total < 0.2 mg/dL (0.1-1.0); Blood Urea Nitrogen 13 mg/dL (8-23); Calcium 8.6 mg/dL (8.6-10.4); Carbon Dioxide 28 mmol/L (22-30); Chloride 103 mmol/L (96-108); Creatine Kinase 98 U/L (24-170); Globulin 3.3 gm/dL (2.2-3.7); Glomerular Filtration Rate 87; Glucose 90 mg/dL (70-105)
[2021-01-20 10:45] LABS: Appearance,Urine CLEAR (Clear); Bilirubin,Urine Negative (Negative); Color,Urine STRAW; Culture Indicated,Urine No; Glucose,Urine (UA) Negative (Negative); Ketones,Urine Negative (Negative); Leukocyte Esterase,Urine Negative /ug (Negative); Mucus,Urine FEW /hpf; Nitrate,Urine Negative (Negative); Protein,Urine Negative (Negative); Urine Blood Negative (Negative); Urine RBC < 1 /hpf (0-3); Urine Squamous Epithelial Cell < 1 /hpf (0-4); Urine WBC 0 /hpf (0-4); Urobilinogen,Urine Negative
--- NOTE | 2021-01-20 12:00 | Internal Med History&Physical ---
HPI History of Present Illness Patient information: Note initiated : 01/20/21 at 11:54 am Service Date, if different from initiated Date: [] Patient: Libia Lovell a 70 y/o F admitted on for Fall. Chief Complaint: [] History of present illness: Ms. Lovell is a 70 year old F With dementia and a poor historian was brought in after a fall and patient complained right hip pain. She has some bilateral arm skin tears. She is essentially nonverbal with her dementia. Lives at home with her . Patient was found in the kitchen on the floor moaning. Vital signs are stable. Imaging over the hip reveal a right hip fracture. Dr. Ojeda was contacted. Review of systems: Unable to obtain given dementia PFSH PFSH All Active Problems (Updated 01/20/21 @ 10:19 by Maxi Pugh MD) Closed hip fracture (Acute) E. coli UTI (Acute) Closed hip fracture (Acute) Medicare annual wellness visit, initial (Acute) Cachexia (Acute) Alzheimer's dementia with behavioral disturbance (Acute) Osteoporosis (Acute) COPD (chronic obstructive pulmonary disease) (Chronic) Alzheimers disease (Chronic) COPD (chronic obstructive pulmonary disease) (Acute) Migraine (Chronic) Chronic sinusitis (Chronic) Surgical menopause (Chronic) Brachial plexopathy (Chronic) Medical History (Updated 01/20/21 @ 10:19 by Maxi Pugh MD) Alzheimer's dementia with behavioral disturbance requires multiple redirections for behavior modification Alzheimers disease 2012 Brachial plexopathy Chronic sinusitis COPD (chronic obstructive pulmonary disease) Medicare annual wellness visit, initial Migraine Surgical menopause Surgical History History of fusion of cervical spine History of hysterectomy History of sinus surgery Britton's neuroma Family History Unknown Benign neoplasm Essential hypertension Social History caregiver/support person: Yes (daughter and dad/ ) marital status: occupational status: retired alcohol intake frequency: does not drink substance use type: does not use MEDS/ALLERGIES Home Medications and Allergies Home Medications Medication Instructions Recorded Confirmed Type acetaminophen 325 mg capsule 325 mg PO QDAY PRN cap 05/24/18 01/20/21 History food supplemt, lactose-reduced 1 each PO BID #472 ml 07/04/18 01/20/21 Rx memantine 10 mg tablet 10 mg PO BID #180 tab 07/06/20 01/20/21 Rx aspirin [Ecotrin Low Strength] 81 mg PO BID #56 tab 11/25/20 01/20/21 Rx docusate sodium [DOK] 100 mg PO BID #20 cap 11/25/20 01/20/21 Rx hydrocodone-acetaminophen 1 tab PO Q4H PRN #20 tab 11/25/20 01/20/21 Rx levofloxacin 750 mg PO QDAY #4 tab 11/25/20 01/20/21 Rx sennosides [Senna Lax] 8.6 mg PO HS #10 tab 11/25/20 01/20/21 Rx Allergies Allergy/AdvReac Type Severity Reaction Status Date / Time Cephalosporins Allergy Unknown Cardiac Verified 01/20/21 07:29 arrest ibuprofen Allergy Unknown Cardiac Verified 01/20/21 07:29 arrest levofloxacin [From Levaquin] Allergy Unknown Unknown Verified 01/20/21 07:29 Penicillins Allergy Unknown Unknown Verified 01/20/21 07:29 EXAM Constitutional Vitals: Temp Pulse Resp BP Pulse Ox 97.6 F 55 L 16 151/76 96 01/20/21 07:25 01/20/21 10:01 01/20/21 07:25 01/20/21 11:01 01/20/21 10:01 Exam: General: Alert, Awake, No acute Distress Eyes/N/T: EOMI, PERRL, DMM Head/Neck: neck supple, normocephalic atraumatic CV: RRR, No murmurs, normal s1/s2 Pulm: Clear b/l, no wheezing/rhonchi/rales Abd: soft, nontender, +BS x4 Ext: no clubbing/cyanosis/edema Neuro: Alert, no focal deficits, moves all extremities, CN 2-12 grossly intact, sensations intact b/l upper/lower Skin: warm/dry DATA Data Completed and Pending Labs: Labs from last 24 hours 01/20/21 01/20/21 01/20/21 09:51 08:19 08:19 WBC RBC Hgb Hct MCV MCH MCHC RDW Plt Count MPV Neut % (Auto) Lymph % (Auto) [place] % (Auto) Eos % (Auto) Baso % (Auto) Lymph # (Auto) [place] # (Auto) Eos # (Auto) Baso # (Auto) Absolute Neutrophils Sodium Potassium Chloride Carbon Dioxide Anion Gap BUN Creatinine GFR Calculation Glucose Calcium Total Bilirubin AST ALT Alkaline Phosphatase Total Creatine Kinase 98 Troponin T < 0.01 Total Protein Albumin Globulin Albumin/Globulin Ratio Urine Color Straw Urine Appearance Clear Urine pH 8.0 Ur Specific [place] 1.010 Urine Protein Negative Urine Glucose (UA) Negative Urine Ketones Negative Urine Occult Blood Negative Urine Nitrate Negative Urine Bilirubin Negative Urine Urobilinogen Negative Ur Leukocyte Esterase Negative Urine RBC < 1 Urine WBC 0 Ur Squamous Epith Cells < 1 Urine Bacteria None Urine Mucus Few A Ur Culture Indicated? No 01/20/21 01/20/21 08:19 08:19 WBC 8.5 RBC 3.78 L Hgb 10.7 L Hct 34.0 L MCV 89.9 MCH 28.3 MCHC 31.5 RDW 15.1 H Plt Count 344 MPV 9.4 Neut % (Auto) 78.8 H Lymph % (Auto) 14.0 L [place] % (Auto) 5.5 Eos % (Auto) 1.1 Baso % (Auto) 0.6 Lymph # (Auto) 1.19 L [place] # (Auto) 0.47 Eos # (Auto) 0.09 Baso # (Auto) 0.05 Absolute Neutrophils 6.70 Sodium 137 Potassium 4.5 Chloride 103 Carbon Dioxide 28 Anion Gap 6.0 L BUN 13 Creatinine 0.7 GFR Calculation 87 Glucose 90 Calcium 8.6 Total Bilirubin < 0.2 AST 18 ALT 12 Alkaline Phosphatase 152 H Total Creatine Kinase Troponin T Total Protein 6.8 Albumin 3.5 Globulin 3.3 Albumin/Globulin Ratio 1.1 Urine Color Urine Appearance Urine pH Ur Specific [place] Urine Protein Urine Glucose (UA) Urine Ketones Urine Occult Blood Urine Nitrate Urine Bilirubin Urine Urobilinogen Ur Leukocyte Esterase Urine RBC Urine WBC Ur Squamous Epith Cells Urine Bacteria Urine Mucus Ur Culture Indicated? A/P Narrative A/P Narrative: A: *Right hip fracture (had Left Hip Fx in November): *Advanced dementia: Essentially nonverbal *Generalized weakness/deconditioning: *Anemia, chronic: * P: -Ortho for repair and pain control -pt/ot -home psych meds -ppx: post-op per ortho Time Spent With Patient Time: Total time spent is greater than 50% in coordination of care (as documented) at patient's floor/unit and/or counseling patient:
--- NOTE | 2021-01-20 12:09 | EKG ---
[facility] Test Date: 2021-01-20 Pat Name: Libia Lovell Department: ED Room: Gender: Female Wire Puller: : 1950 Requested By: Maxi Pugh Order Number: [id number] Reading MD: Joe Gan M.D. Measurements Intervals [place] Rate: 66 P: 76 IA: 144 QRS: 55 QRSD: 101 T: 56 QT: 432 QTc: 453 Interpretive Statements Sinus rhythm Probable left atrial enlargement RSR' in V1 or V2, probably normal variant NO PRIOR TRACING FOR COMPARISON Electronically Signed On 01-20-2021 12:09:16 PDT by Joe Gan M.D. /[id number]/[email or web address]/[id number]
[2021-01-20] MEDS ORDERED: ONDANSETRON 4 MG/2 ML VIAL IV PRN ×2 (14:10→17:23)
[2021-01-20] MEDS ORDERED: POLYETHYLENE GLYCOL 3350 17 GM PACKET PO PRN ×2 (14:10→17:03)
[2021-01-20] MEDS ORDERED: ACETAMINOPHEN 325 MG TABLET PO PRN (14:10)
[2021-01-20] MEDS ORDERED: SENNOSIDES 1 TABLET PO PRN ×2 (14:10→14:15)
[2021-01-20] MEDS ORDERED: LACTULOSE 20 GM/30 ML ORAL.SOL PO PRN (14:10)
[2021-01-20] MEDS ORDERED: HYDROcodone/APAP 5/325MG TABLET PO PRN (14:10)
[2021-01-20] MEDS ORDERED: POTASSIUM CHLORIDE 40 MEQ in DEXTROSE 5% IN WATER 500 ML IV PRN (14:10)
[2021-01-20] MEDS ORDERED: IPRATROPIUM/ALBUTEROL 3 ML AMPUL.NEB NEB PRN ×2 (14:10→17:23)
[2021-01-20] MEDS ORDERED: MAGNESIUM SULFATE 2 GM/50 ML BAG IV PRN (14:10)
[2021-01-20] MEDS ORDERED: 0.9 % SODIUM CHLORIDE 1,000 ML IV SCH (14:10)
[2021-01-20] MEDS ORDERED: POTASSIUM CHLORIDE 20 MEQ TABLET PO PRN ×2 (14:10)
[2021-01-20] MEDS: 0.9 % SODIUM CHLORIDE 10 ML SYRINGE IV SCH ×2 (14:59→20:09)
--- NOTE | 2021-01-20 15:23 | Orthopedic History & Physical ---
HPI History of Present Illness Patient information: Note initiated : 01/20/21 at 3:09 pm Service Date, if different from initiated Date: [] Patient: Libia Lovell 70 y/o F admitted on 01/20/21 for Fall. Chief Complaint: [right hip pain s/p fall ] History of present illness: Ms. Lovell is a 70 year old Female with history of advanced alzheimers dementia who presented to the ER at [facility] with complaint of right hip pain s/p unwitnessed fall imaging at the ED revealed a subcapital fracture of the right femur and Dr. Borrego orthopedic surgeon was consulted for treatment. On exam patient is at bedrest and awake and alert but not oriented. Head, neck, chest and abdomen are non tender to palpation she is able to move all four extremities which are warm and well perfused. There are multiple skin slips covered in dressings on the upper extremities. There is tenderness to palpation at the right hip area and pain with any ROM of the hip. Treatment options were presented to the patient and her daughter also in the room, consisting of non-operative and surgical. Non-operative carries the risks of loss of ROM, increased pain and further injury. Surgical option consists of open reduction internal fixation via right hip yen-arthroplasty. At this time patient and daughter are interested in surgery. Plan is for right hip hemiarthroplasty to take place semi-emergently with Dr. Borrego and Ulisses MONTALVO Surgical risks were presented to patient and daughter to include but not limited to: pain, bleeding, infection, injury to adjacent structures, pulmonary and cardiac complications, stroke, anesthesia reactions adn . patient and her daughter understand these risks and wish to proceed with surgery. Review of Systems ROS unobtainable: due to mental status PFSH PFSH All Active Problems (Updated 01/20/21 @ 10:19 by Maxi Pugh MD) Closed hip fracture (Acute) E. coli UTI (Acute) Closed hip fracture (Acute) Medicare annual wellness visit, initial (Acute) Cachexia (Acute) Alzheimer's dementia with behavioral disturbance (Acute) Osteoporosis (Acute) COPD (chronic obstructive pulmonary disease) (Chronic) Alzheimers disease (Chronic) COPD (chronic obstructive pulmonary disease) (Acute) Migraine (Chronic) Chronic sinusitis (Chronic) Surgical menopause (Chronic) Brachial plexopathy (Chronic) Medical History (Updated 01/20/21 @ 10:19 by Maxi Pugh MD) Alzheimer's dementia with behavioral disturbance requires multiple redirections for behavior modification Alzheimers disease 2012 Brachial plexopathy Chronic sinusitis COPD (chronic obstructive pulmonary disease) Medicare annual wellness visit, initial Migraine Surgical menopause Surgical History History of fusion of cervical spine History of hysterectomy History of sinus surgery Britton's neuroma Family History Unknown Benign neoplasm Essential hypertension Social History caregiver/support person: Yes (daughter and dad/ ) marital status: occupational status: retired alcohol intake frequency: does not drink substance use type: does not use MEDS/ALLERGIES Home Medications and Allergies Home Medications Medication Instructions Recorded Confirmed Type acetaminophen 325 mg capsule 325 mg PO QDAY PRN cap 05/24/18 01/20/21 History food supplemt, lactose-reduced 1 each PO BID #472 ml 07/04/18 01/20/21 Rx memantine 10 mg tablet 10 mg PO BID #180 tab 07/06/20 01/20/21 Rx methocarbamol 500 mg PO Q6HP PRN 01/20/21 01/20/21 History Allergies Allergy/AdvReac Type Severity Reaction Status Date / Time Cephalosporins Allergy Severe Cardiac Verified 01/20/21 14:20 arrest ibuprofen Allergy Severe Cardiac Verified 01/20/21 14:20 arrest levofloxacin [From Levaquin] Allergy Unknown Unknown Verified 01/20/21 07:29 Penicillins Allergy Unknown Unknown Verified 01/20/21 07:29 Physical Examination Hip right: Tenderness with palpation: anterior, posterior, medial, lateral, greater trochanter and other Results Labs Result Diagrams: 01/20/21 08:19 01/20/21 08:19 Labs: Abnormal lab results 01/20/21 01/20/21 01/20/21 Range/Units 08:19 08:19 09:51 RBC 3.78 L (4.00-5.20) M/mcL Hgb 10.7 L (12.0-15.0) g/dL Hct 34.0 L (36.0-48.0) % RDW 15.1 H (11.5-14.5) % Neut % (Auto) 78.8 H (38.0-78.0) % Lymph % (Auto) 14.0 L (15.0-49.0) % Lymph # (Auto) 1.19 L (1.50-4.80) K/mcL Anion Gap 6.0 L (8.0-16.0) Alkaline Phosphatase 152 H (39-117) U/L Urine Mucus Few A (None) /hpf H & H // Range/Units 08:19 Hgb 10.7 L (12.0-15.0) g/dL Hct 34.0 L (36.0-48.0) % All other labs normal. A/P Narrative A/P Narrative: Assessment: 70 YO female with Right hip fracture s/p unwitnessed fall Plan: Right hip hemiarthroplasty Time Spent With Patient Time: Total time spent is greater than 50% in coordination of care (as documented) at patient's floor/unit and/or counseling patient:
[2021-01-20] MEDS ORDERED: ONDANSETRON 4 MG/2 ML VIAL ONE (15:53)
[2021-01-20] MEDS ORDERED: MIDAZOLAM 2 MG/2 ML VIAL ONE (15:53)
[2021-01-20] MEDS ORDERED: TRANEXAMIC ACID 1,000 MG/10 ML VIAL IV ONE (15:53)
[2021-01-20] MEDS ORDERED: KETAMINE 50 MG/ML ML ONE (15:53)
[2021-01-20] MEDS ORDERED: PROPOFOL 200 MG/20 ML VIAL IV ONE (15:53)
[2021-01-20] MEDS ORDERED: PHENYLEPHRINE 10 MG/ML VIAL ONE (15:53)
[2021-01-20] MEDS ORDERED: DEXAMETHASONE 10 MG/ML VIAL ONE (15:53)
[2021-01-20] MEDS ORDERED: MAGNESIUM SULFATE 2 GM/50 ML BAG IV ONE (15:53)
[2021-01-20] MEDS ORDERED: LIDOCAINE HCL/PF 100 MG/5 ML SYRINGE IV ONE (15:53)
[2021-01-20] MEDS ORDERED: ROPIVACAINE HCL/PF 30 ML VIAL IJ ONE (15:53)
[2021-01-20] MEDS ORDERED: GLYCOPYRROLATE 0.2 MG/ML VIAL IV ONE (15:53)
[2021-01-20] MEDS ORDERED: ceFAZolin 2 GM in DEXTROSE 5% IN WATER 50 ML IV SCH ×2 (16:00→17:15)
[2021-01-20] MEDS ORDERED: VANCOMYCIN 750 MG in 0.9 % SODIUM CHLORIDE 250 ML IV ONE (16:45)
--- NOTE | 2021-01-20 17:02 | General Surgery Procedure Note ---
Date of procedure: Note initiated : 01/20/21 at 4:59 pm Service Date, if different from initiated Date: [] Pre-op diagnosis: left femoral neck fracture Post-op diagnosis: same Procedure: left hip hemiarthroplasty Findings: femoral neck fracture Anesthesia: RICARDO Surgeon: Rusty Borrego Psychological Examiner: Bipin Santos Estimated blood loss: 100 Pathology: none sent Condition: stable Disposition: PACU
[2021-01-20] MEDS ORDERED: morphine 4 MG/ML VIAL IV PRN (17:03)
[2021-01-20] MEDS ORDERED: BENZOCAINE/MENTHOL 1 LOZENGE PO PRN ×2 (17:03→17:23)
[2021-01-20] MEDS ORDERED: MAGNESIUM HYDROXIDE 30 ML ORAL.SUSP PO PRN (17:03)
[2021-01-20] MEDS ORDERED: BISACODYL 10 MG SUPP.RECT PR PRN (17:03)
[2021-01-20] MEDS ORDERED: FLEETS ADULT ENEMA PR PRN (17:03)
--- NOTE | 2021-01-20 17:03 | Discharge Plan ---
Discharge Instructions - [facility] Patient Instructions Total Hip Protocol: Follow activity instructions as provided by Physical Therapy. Discharge Plan Patient/Caregiver Discharge Instructions Activity: ambulate only with your walker Diet: Regular Diet Prescriptions: No Action memantine 10 mg tablet 10 mg PO BID Qty: 180 RF: 1 acetaminophen [Tylenol] 325 mg capsule 325 mg PO QDAY PRN (Reason: Pain) RF: 0 food supplemt, lactose-reduced [Ensure] liquid 1 each PO BID Qty: 472 RF: 0 methocarbamol 500 mg tablet 500 mg PO Q6HP PRN (Reason: Muscle Spasm) RF: 0 Follow Up Plan Follow up with: Wojciech Wang MD, FAAFP [Primary Care Provider] - Patient Disposition: Xfer SNF Rehab Potential: Fair I certify that the patient requires SNF services: Yes Overall status at discharge: patient is progressing back to baseline Discharge Orders: Discharge Order (Routine); Ordered 01/20/21 Ordered By: Rusty Borrego Discharge Comment: cc: femoral neck fracture s/p hemiarthroplasty
[2021-01-20] MEDS ORDERED: ACETAMINOPHEN 1,000 MG/100 ML BAG IV ONE (17:23)
[2021-01-20] MEDS ORDERED: METHOCARBAMOL 1,000 MG/10 ML VIAL IV PRN (17:23)
[2021-01-20] MEDS ORDERED: MEPERIDINE 25 MG/ML VIAL IV PRN (17:23)
[2021-01-20] MEDS ORDERED: fentaNYL 100 MCG/2 ML VIAL IV PRN (17:23)
[2021-01-20] MEDS ORDERED: ACETAMINOPHEN 600 MG/60 ML BAG IV ONE (17:30)
[2021-01-20] MEDS ORDERED: LACTATED RINGERS 1,000 ML IV SCH (17:30)
--- NOTE | 2021-01-20 17:55 | XRay Report ---
HISTORY: Postop repair of right hip fracture FINDINGS: A unipolar right hip prosthesis has been inserted. This is well centered within the acetabulum. No fracture is present. There is an indwelling left hip prosthesis. IMPRESSION: Well-positioned right hip prosthesis Interpreted and Authenticated by: Venancio Giles 01/20/21
[2021-01-20] MEDS: LACTATED RINGERS 1,000 ML IV SCH (19:23)
[2021-01-20] MEDS: MEMANTINE 10 MG TABLET PO SCH (20:06)
[2021-01-20] MEDS: SENNOSIDES 1 TABLET PO SCH (20:06)
[2021-01-20] MEDS: HYDROcodone/APAP 5/325MG TABLET PO PRN (20:06)
[2021-01-20] MEDS: DOCUSATE SODIUM 100 MG CAPSULE PO SCH (20:07)
[2021-01-20] MEDS ORDERED: DOCUSATE SODIUM 100 MG CAPSULE PO SCH ×2 (21:00)
[2021-01-20] MEDS ORDERED: OLANZapine 5 MG TABLET PO PRN (21:00)
[2021-01-20] MEDS ORDERED: SENNOSIDES 1 TABLET PO SCH (21:00)
[2021-01-21] MEDS: 0.9 % SODIUM CHLORIDE 10 ML SYRINGE IV SCH ×3 (05:52→20:01)
[2021-01-21] MEDS: LACTATED RINGERS 1,000 ML IV SCH ×2 (05:52→16:25)
[2021-01-21 06:56] LABS: Basophils # (Auto) 0.03 K/mcL (0.00-0.20); Basophils % (Auto) 0.3 % (0.0-2.0); Eosinophils # (Auto) 0 K/mcL (0.00-0.70); Eosinophils % (Auto) 0 % (0.0-7.0); Hematocrit 31.3 % (36.0-48.0); Hemoglobin 9.9 g/dL (12.0-15.0); Lymphocytes # (Auto) 0.88 K/mcL (1.50-4.80); Lymphocytes % (Auto) 8.8 % (15.0-49.0); Mean Cell Volume 87.2 fL (80.0-100.0); Mean Corpuscular HGB Conc 31.6 g/dL (31.0-36.0); Mean Platelet Volume 10.2 fL (7.4-10.4); Monocytes # (Auto) 0.54 K/mcL (0.10-0.90); Monocytes % (Auto) 5.4 % (1.0-12.0); Neutrophils % (Auto) 85.5 % (38.0-78.0); Platelet Count 380 K/mcL (140-440); RBC 3.59 M/mcL (4.00-5.20)
--- NOTE | 2021-01-21 07:22 | Discharge Summary ---
Discharge Provider Provider Patient information: Note initiated : 01/21/21 at 7:22 am Service Date, if different from initiated Date: [] Patient: Libia Lovell 70 y/o F admitted on 01/20/21 for Fall. Chief Complaint: mild pain Date of admission: 01/20/21 13:42 Discharge date: 01/23/21 Primary care physician: Wojciech Wang M.D., F.A.A.F.P. Consults: 01/20/21 09:04 Consult to Physician [CONS] Stat Comment: Consulting Provider: Rusty Borrego Reason For Exam: Physician to Consult Consult to Physician [CONS] Stat Comment: Consulting Provider: Isauro Bain Reason For Exam: Physician to Consult COURSE Hospital Course Hospital course: . Discharge diagnosis: . Time Spent with Patient Time attestation: Total time spent providing and/or coordinating discharge services: Physical Examination Narrative Exam Narrative: bandages c/d/i nvi-distal Exam Clean and dry: Yes Weight bearing status: as tolerated Discharge Instructions - KEIKO Patient Instructions Total Hip Protocol: Follow activity instructions as provided by Physical Therapy. Discharge Plan Patient/Caregiver Discharge Instructions Activity: ambulate only with your walker, as per physical therapy and increase activity as tolerated Diet: Regular Diet Instructions: Fondaparinux (By injection), Total Hip Replacement (DC) Activity Restrictions/Additional Instructions: Ambulate only with a walker. Activity as per physical therapy. Increase activity as tolerated. Weight bearing as tolerated. Regular diet as tolerated. You have the Silver dressing covering martin, leave in place for 7 days then remove. You may start to shower post op day #2 (January 22) with dressing on, pat dry after shower. Place clean gauze dressing on hip after showering and change daily. No baths, pools, or hot tubs. To avoid constipation while taking any narcotic pain medication, take an over the counter stool softener/laxative. Use your ice packs as directed. Ice and elevation will help with pain and swelling. If you have any questions or concerns call your orthopedic surgeon before going to the emergency room. [facility] has a design verification engineer physician 24 hours per day/7 days per week and can be reached at [phone]. Call for fevers above 100.5 or pain not controlled by medication. Your prescriptions are with your discharge information. Take Arixtra as prescribed to prevent blood clots (see medication list). This discharge packet is provided to you to help keep you informed about your care. We want to ensure you get everything you need when you go home. You will also be receiving a call from us in a few days to follow up with you and see how you are doing since your discharge. This gives us a chance to listen to any concerns you maybe experiencing since you were discharged or any additional needs you may have, as well as providing us feedback on your care experience. We strive to always provide excellent care and thank you for your feedback and for choosing [facility]. Prescriptions: New fondaparinux 2.5 mg/0.5 mL Syringe 2.5 mg SQ DAILY Qty: 21 RF: 0 Continued memantine 10 mg tablet 10 mg PO BID Qty: 180 RF: 1 acetaminophen [Tylenol] 325 mg capsule 325 mg PO QDAY PRN (Reason: Pain) RF: 0 food supplemt, lactose-reduced [Ensure] liquid 1 each PO BID Qty: 472 RF: 0 methocarbamol 500 mg tablet 500 mg PO Q6HP PRN (Reason: Muscle Spasm) RF: 0 Other Ambulatory Orders: OT Discharge Order (Routine) Location: None Selected Ordered By: Rusty Borrego Physical Therapy DC - KEIKO (Routine) Location: None Selected Ordered By: Rusty Borrego Physical Therapy at Discharge - KEIKO (Routine) Location: None Selected Ordered By: Terrence Arevalo Toilet Riser Discharge Order (ONCE) Location: None Selected Ordered By: Rusty Borrego Walker (ONCE) Location: None Selected Ordered By: Rusty Borrego Follow Up Plan Follow up with: Wojciech Wang MD, FAAFP [Primary Care Provider] - (Please call and scheduled a hsopital follow up appointment.) Bipin Santos PA-C [Physician] - (Please call and schedule a surgical follow up to be seen 10-13 days post surgery.) Patient Disposition: Xfer SNF Rehab Potential: Good I certify that the patient requires SNF services: Yes Overall status at discharge: patient is progressing back to baseline Discharge Orders: Discharge Order (Routine); Ordered 01/20/21 Ordered By: Rusty Borrego Discharge Comment: cc: femoral neck fracture s/p hemiarthroplasty Pending Pending Pending: Diet Regular Diet Start MonJan 20 170 Hydrocodone Bitart/Acetaminophen (Hydrocodone/Apap 5/325mg Tablet) 0 tab PO Q4HP PRN; Protocol PRN Reason: Per Pain Protocol Last Admin: 01/20/21 20:06 Dose: 1 tab Documented by: BLANCA Docusate Sodium (Docusate Sodium 100 Mg Capsule) 100 mg PO BID [facility] Last Admin: 01/20/21 20:07 Dose: 100 mg Documented by: BLANCA Lactated Ringer's (Lactated Ringers) 1,000 mls @ 100 mls/hr IV .Q10H [facility] Last Admin: 01/21/21 05:52 Dose: 100 mls/hr Documented by: Infusion: 01/21/21 05:38 Dose: 0 mls/hr Documented by: Admin: 01/20/21 19:23 Dose: 100 mls/hr Documented by: BLANCA Memantine (Memantine 10 Mg Tablet) 10 mg PO BID [facility] Last Admin: 01/20/21 20:06 Dose: 10 mg Documented by: BLANCA Senna (Sennosides 1 Tablet) 2 tab PO HS [facility] Last Admin: 01/20/21 20:06 Dose: 2 tab Documented by: BLANCA Sodium Chloride (0.9 % Sodium Chloride 10 Ml Syringe) 10 ml IV Q8 [facility] Last Admin: 01/21/21 05:52 Dose: Not Given Documented by: Admin: 01/20/21 20:09 Dose: Not Given Documented by: Admin: 01/20/21 14:59 Dose: 10 ml Documented by: [id number] Shift Summary 01/21/21 04:15 Shift Summary by Cami Cortes Diagnosis: S/P Left hip hemiarthroplasty Brief history of present illness: 70 year old Female with history of advanced Alzheimers dementia who presented to the ER at [facility] with complaint of right hip pain s/p unwitnessed fall Orientation: Advanced Dementia will turn head when name is called. Pleasant and cooperative with all cares Oxygen/Airway needs: VSS on RA Ambulation status: FWW/GB assist of 2 Voiding: Peterson catheter returning clear straw colored urine without difficulty IV access: IV in the Left forearm infusing LR at 100cc/hr via pump. IV patent to s/s of infection. Tubes/drains: None Pain: Pt with restlessness and fidgeting x 1 medicated with Hydrocodone X 1 Wounds: There are multiple skin slips covered in dressings on the upper extremities. Dressing to Right hip C/D/I Discharge plans: TBD Initialized on 01/21/21 04:15 - END OF NOTE
--- NOTE | 2021-01-21 07:24 | Orthopedic Progress Note ---
SUBJECTIVE Subjective Patient information: Note initiated : 01/21/21 at 7:22 am Service Date, if different from initiated Date: [] Patient: Libia Lovell 70 y/o F admitted on 01/20/21 for Fall. Chief Complaint: [pod 1 s/p right hip hemiarthroplasty] no complaints, pt with dementia Constitutional Vitals: Vital Signs Temp Pulse Resp BP Pulse Ox 97.4 F 84 12 116/60 93 01/21/21 04:18 01/21/21 04:18 01/21/21 04:18 01/21/21 04:18 01/21/21 04:18 Period Temp Pulse Resp BP Sys/Rodas Pulse Ox Last 24 Hr 96.7 F-97.8 F 54-97 10-19 108-188/60-166 90-100 Intake and Output 01/20/21 01/21/21 01/21/21 21:59 05:59 13:59 Intake Total 2110 1100 Output Total 525 950 Balance 1585 150 Weight 107 lb 11.2 oz Intake & Output: Intake & Output 01/20/21 01/21/21 01/21/21 21:59 05:59 13:59 Intake Total 2110 1100 Output Total 525 950 Balance 1585 150 Weight 107 lb 11.2 oz Intake: IV 1310 1000 Sodium Chloride 0.9% 1,000 ml @ 1000 75 mls/hr IV .[id number] [facility] Rx#: [id number] Lactated Ringers 1,000 ml @ 100 1000 mls/hr IV .Q10H [facility] Rx#: [id number] Vancomycin 750 mg In Sodium 250 Chloride 0.9% 250 ml @ 250 mls/ hr IV ONCE ONE Rx#:[id number] Oral 100 IV - Manual Only 800 Output: Urine Catheter Amount 450 Void Amount 950 Estimated Blood Loss 75 Other: Urine Appearance Clear Clear Urine Color Pale Bright Yellow Urine Odor Normal Expanded Lower Extremity Exam Hip exam: Present full ROM, swelling and tenderness; Absent deformity and erythema Neuro vascular tendon exam: Present no vascular compromise; Absent pulse deficit and sensory deficit OBJ DATA Labs CBC & Chem 7: 01/21/21 04:39 01/20/21 08:19 Labs: Abnormal Lab Results 01/21/21 01/20/21 01/20/21 04:39 09:51 08:19 RBC 3.59 L Hgb 9.9 L Hct 31.3 L RDW 15.0 H Neut % (Auto) 85.5 H Lymph % (Auto) 8.8 L Lymph # (Auto) 0.88 L Absolute Neutrophils 8.50 H Anion Gap 6.0 L Alkaline Phosphatase 152 H Urine Mucus Few A 01/20/21 08:19 RBC 3.78 L Hgb 10.7 L Hct 34.0 L RDW 15.1 H Neut % (Auto) 78.8 H Lymph % (Auto) 14.0 L Lymph # (Auto) 1.19 L Absolute Neutrophils Anion Gap Alkaline Phosphatase Urine Mucus Meds: Medications Acetaminophen (Acetaminophen 325 Mg Tablet) 650 mg PO Q6HP PRN PRN Reason: PAIN/FEVER > 101 Hydrocodone Bitart/Acetaminophen (Hydrocodone/Apap 5/325mg Tablet) 0 tab PO Q4HP PRN; Protocol PRN Reason: Per Pain Protocol Last Admin: 01/20/21 20:06 Dose: 1 tab Documented by: Albuterol/Ipratropium (Ipratropium/Albuterol 3 Ml Ampul.Neb) 3 ml NEB Q4HP PRN PRN Reason: Shortness Of Breath Bisacodyl (Bisacodyl 10 Mg Supp.Rect) 10 mg [place] Q2-3DAYS PRN PRN Reason: Constipation Docusate Sodium (Docusate Sodium 100 Mg Capsule) 100 mg PO BID [facility] Last Admin: 01/20/21 20:07 Dose: 100 mg Documented by: Fondaparinux (Fondaparinux Sodium 2.5 Mg/0.5 Ml Syringe) 2.5 mg SQ DAILY [facility] Potassium Chloride 40 meq/ (Dextrose) 520 mls @ 130 mls/hr IV UD PRN PRN Reason: Potassium < 3 Magnesium Sulfate (Magnesium Sulfate) 2 gm in 50 mls @ 50 mls/hr IV UD PRN PRN Reason: Magnesium </= 1.6 Lactated Ringer's (Lactated Ringers) 1,000 mls @ 100 mls/hr IV .Q10H [facility] Last Admin: 01/21/21 05:52 Dose: 100 mls/hr Documented by: Lactulose (Lactulose 20 Gm/30 Ml Oral.Yessenia) 20 gm PO DAILYP PRN PRN Reason: Constipation Magnesium Hydroxide (Magnesium Hydroxide 30 Ml Oral.Susp) 30 ml PO BIDP PRN PRN Reason: Constipation Memantine (Memantine 10 Mg Tablet) 10 mg PO BID [facility] Last Admin: 01/20/21 20:06 Dose: 10 mg Documented by: Morphine Sulfate (Morphine 4 Mg/Ml Vial) 0 mg IV Q1HP PRN; Protocol PRN Reason: Per Pain Protocol Olanzapine (Olanzapine 5 Mg Tablet) 5 mg PO HSP PRN PRN Reason: Agitation Ondansetron HCl (Ondansetron 4 Mg/2 Ml Vial) 4 mg IV Q4HP PRN PRN Reason: Nausea And Vomiting Polyethylene Glycol (Polyethylene Glycol 3350 17 Gm Packet) 17 gm PO DAILYP PRN PRN Reason: Constipation Polyethylene Glycol (Polyethylene Glycol 3350 17 Gm Packet) 17 gm PO DAILYP PRN PRN Reason: Constipation Potassium Chloride (Potassium Chloride 20 Meq Tablet) 40 meq PO UD PRN PRN Reason: Potssium is 3-3.5 Potassium Chloride (Potassium Chloride 20 Meq Tablet) 40 meq PO UD PRN PRN Reason: Potassium < 3 Senna (Sennosides 1 Tablet) 1 tab PO DAILYP PRN PRN Reason: Constipation Senna (Sennosides 1 Tablet) 2 tab PO HS [facility] Last Admin: 01/20/21 20:06 Dose: 2 tab Documented by: Sodium Biphosphate/Sodium Phosphate (Fleets Adult Enema) 1 dose [place] Q3-4DAYS PRN PRN Reason: Constipation Sodium Chloride (0.9 % Sodium Chloride 10 Ml Syringe) 10 ml IV Q8 [facility] Last Admin: 01/21/21 05:52 Dose: Not Given Documented by: Throat Lozenges (Benzocaine/Menthol 1 Lozenge) 1 lozenge PO PRN PRN PRN Reason: Sore Throat A/P Narrative A/P Narrative: pod 1 s/p right hip hemiarthroplasty wbat pain control dvt prophylaxis d/c planning - ortho stable, rehab when medically appropriate please call if questions Time Spent With Patient Time: Total time spent is greater than 50% in coordination of care (as documented) at patient's floor/unit and/or counseling patient:
--- NOTE | 2021-01-21 07:26 | Internal Med Progress Note ---
SUBJECTIVE Subjective Patient information: Note initiated : 01/21/21 at 7:24 am Service Date, if different from initiated Date: [] Patient: Libia Lovell a 70 y/o F admitted on 01/20/21 for Fall. Chief Complaint: [] Interval history: History of present illness: Ms. Lovell is a 70 year old F With dementia and a poor historian was brought in after a fall and patient complained right hip pain. She has some bilateral arm skin tears. She is essentially nonverbal with her dementia. Lives at home with her . Patient was found in the kitchen on the floor moaning. Vital signs are stable. Imaging over the hip reveal a right hip fracture. Dr. Ojeda was contacted. 01/21 Status post ORIF yesterday. No overnight event or new complaints. Review of systems: Unable to obtain given dementia Constitutional Vitals: Vital Signs Temp Pulse Resp BP Pulse Ox 97.4 F 84 12 116/60 93 01/21/21 04:18 01/21/21 04:18 01/21/21 04:18 01/21/21 04:18 01/21/21 04:18 Period Temp Pulse Resp BP Sys/Rodas Pulse Ox Last 24 Hr 96.7 F-97.8 F 54-97 10-19 108-188/60-166 90-100 Intake and Output 01/20/21 01/21/21 01/21/21 21:59 05:59 13:59 Intake Total 2110 1100 Output Total 525 950 Balance 1585 150 Weight 48.852 kg Intake & Output: Intake & Output 01/20/21 01/21/21 01/21/21 21:59 05:59 13:59 Intake Total 2110 1100 Output Total 525 950 Balance 1585 150 Weight 48.852 kg Intake: IV 1310 1000 Sodium Chloride 0.9% 1,000 ml @ 1000 75 mls/hr IV .[id number] [facility] Rx#: [id number] Lactated Ringers 1,000 ml @ 100 1000 mls/hr IV .Q10H [facility] Rx#: [id number] Vancomycin 750 mg In Sodium 250 Chloride 0.9% 250 ml @ 250 mls/ hr IV ONCE ONE Rx#:[id number] Oral 100 IV - Manual Only 800 Output: Urine Catheter Amount 450 Void Amount 950 Estimated Blood Loss 75 Other: Urine Appearance Clear Clear Urine Color Pale Bright Yellow Urine Odor Normal Exam: General: Alert, Awake, No acute Distress Eyes/N/T: EOMI Head/Neck: neck supple, CV: RRR, No murmurs, Pulm: Clear b/l, no wheezing/rhonchi/rales Abd: soft, nontender, +BS x4 Ext: no clubbing/cyanosis/edema, hip dressings Neuro: Alert, no focal deficits, moves all extremities, advanced dementia Skin: warm/dry OBJ DATA Labs CBC & Chem 7: 01/21/21 04:39 01/21/21 04:39 Labs: Abnormal Lab Results 01/21/21 01/20/21 01/20/21 04:39 09:51 08:19 RBC 3.59 L Hgb 9.9 L Hct 31.3 L RDW 15.0 H Neut % (Auto) 85.5 H Lymph % (Auto) 8.8 L Lymph # (Auto) 0.88 L Absolute Neutrophils 8.50 H Anion Gap 6.0 L Alkaline Phosphatase 152 H Urine Mucus Few A 01/20/21 08:19 RBC 3.78 L Hgb 10.7 L Hct 34.0 L RDW 15.1 H Neut % (Auto) 78.8 H Lymph % (Auto) 14.0 L Lymph # (Auto) 1.19 L Absolute Neutrophils Anion Gap Alkaline Phosphatase Urine Mucus Meds: Medications Acetaminophen (Acetaminophen 325 Mg Tablet) 650 mg PO Q6HP PRN PRN Reason: PAIN/FEVER > 101 Hydrocodone Bitart/Acetaminophen (Hydrocodone/Apap 5/325mg Tablet) 0 tab PO Q4HP PRN; Protocol PRN Reason: Per Pain Protocol Last Admin: 01/20/21 20:06 Dose: 1 tab Documented by: Albuterol/Ipratropium (Ipratropium/Albuterol 3 Ml Ampul.Neb) 3 ml NEB Q4HP PRN PRN Reason: Shortness Of Breath Bisacodyl (Bisacodyl 10 Mg Supp.Rect) 10 mg [place] Q2-3DAYS PRN PRN Reason: Constipation Docusate Sodium (Docusate Sodium 100 Mg Capsule) 100 mg PO BID [facility] Last Admin: 01/20/21 20:07 Dose: 100 mg Documented by: Fondaparinux (Fondaparinux Sodium 2.5 Mg/0.5 Ml Syringe) 2.5 mg SQ DAILY [facility] Potassium Chloride 40 meq/ (Dextrose) 520 mls @ 130 mls/hr IV UD PRN PRN Reason: Potassium < 3 Magnesium Sulfate (Magnesium Sulfate) 2 gm in 50 mls @ 50 mls/hr IV UD PRN PRN Reason: Magnesium </= 1.6 Lactated Ringer's (Lactated Ringers) 1,000 mls @ 100 mls/hr IV .Q10H [facility] Last Admin: 01/21/21 05:52 Dose: 100 mls/hr Documented by: Lactulose (Lactulose 20 Gm/30 Ml Oral.Yessenia) 20 gm PO DAILYP PRN PRN Reason: Constipation Magnesium Hydroxide (Magnesium Hydroxide 30 Ml Oral.Susp) 30 ml PO BIDP PRN PRN Reason: Constipation Memantine (Memantine 10 Mg Tablet) 10 mg PO BID [facility] Last Admin: 01/20/21 20:06 Dose: 10 mg Documented by: Morphine Sulfate (Morphine 4 Mg/Ml Vial) 0 mg IV Q1HP PRN; Protocol PRN Reason: Per Pain Protocol Olanzapine (Olanzapine 5 Mg Tablet) 5 mg PO HSP PRN PRN Reason: Agitation Ondansetron HCl (Ondansetron 4 Mg/2 Ml Vial) 4 mg IV Q4HP PRN PRN Reason: Nausea And Vomiting Polyethylene Glycol (Polyethylene Glycol 3350 17 Gm Packet) 17 gm PO DAILYP PRN PRN Reason: Constipation Polyethylene Glycol (Polyethylene Glycol 3350 17 Gm Packet) 17 gm PO DAILYP PRN PRN Reason: Constipation Potassium Chloride (Potassium Chloride 20 Meq Tablet) 40 meq PO UD PRN PRN Reason: Potssium is 3-3.5 Potassium Chloride (Potassium Chloride 20 Meq Tablet) 40 meq PO UD PRN PRN Reason: Potassium < 3 Senna (Sennosides 1 Tablet) 1 tab PO DAILYP PRN PRN Reason: Constipation Senna (Sennosides 1 Tablet) 2 tab PO HS [facility] Last Admin: 01/20/21 20:06 Dose: 2 tab Documented by: Sodium Biphosphate/Sodium Phosphate (Fleets Adult Enema) 1 dose [place] Q3-4DAYS PRN PRN Reason: Constipation Sodium Chloride (0.9 % Sodium Chloride 10 Ml Syringe) 10 ml IV Q8 [facility] Last Admin: 01/21/21 05:52 Dose: Not Given Documented by: Throat Lozenges (Benzocaine/Menthol 1 Lozenge) 1 lozenge PO PRN PRN PRN Reason: Sore Throat A/P Narrative A/P Narrative: A: *Right hip fracture (had Left Hip Fx in November): s/p Left Thom (01/20) *Advanced dementia: Essentially nonverbal *Generalized weakness/deconditioning: *Anemia, chronic: * P: -Ortho for repair and pain control -pt/ot -home psych meds -CM for placement -ppx: post-op per ortho Time Spent With Patient Time: Total time spent is greater than 50% in coordination of care (as documented) at patient's floor/unit and/or counseling patient: QUALITY VTE Deep Vein Thrombosis/Pulmonary Embolism Present on Admission: No
[2021-01-21 07:43] LABS: ALT/SGPT 16 U/L (<40); AST/SGOT 28 U/L (<32); Albumin 3.3 gm/dL (3.2-5.2); Albumin/Globulin Ratio 1.2 (1.0-2.3); Alkaline Phosphatase 141 U/L (39-117); Bilirubin,Direct < 0.2 mg/dL (0-0.3); Bilirubin,Total 0.2 mg/dL (0.1-1.0); Blood Urea Nitrogen 11 mg/dL (8-23); Calcium 8.5 mg/dL (8.6-10.4); Carbon Dioxide 24 mmol/L (22-30); Chloride 105 mmol/L (96-108); Globulin 2.8 gm/dL (2.2-3.7); Glomerular Filtration Rate 92; Glucose 130 mg/dL (70-105); Lactate Dehydrogenase 268 U/L (135-225); Phosphorous 3.3 mg/dL (2.5-4.5); Triglycerides 87 mg/dL (<150); Uric Acid 3.3 mg/dL (2.5-8.0)
[2021-01-21] MEDS: HYDROcodone/APAP 5/325MG TABLET PO PRN ×3 (08:23→20:34)
[2021-01-21] MEDS: FONDAPARINUX SODIUM 2.5 MG/0.5 ML SYRINGE SQ SCH (08:23)
[2021-01-21] MEDS: DOCUSATE SODIUM 100 MG CAPSULE PO SCH ×2 (08:23→20:01)
[2021-01-21] MEDS: MEMANTINE 10 MG TABLET PO SCH ×2 (08:23→20:01)
--- NOTE | 2021-01-21 14:50 | Internal Med Progress Note ---
SUBJECTIVE Subjective Patient information: Note initiated : 01/22/21 at 2:46 pm Service Date, if different from initiated Date: [] Patient: Libia Lovell a 70 y/o F admitted on 01/20/21 for Fall. Chief Complaint: [] Interval history: History of present illness: Ms. Lovell is a 70 year old F With dementia and a poor historian was brought in after a fall and patient complained right hip pain. She has some bilateral arm skin tears. She is essentially nonverbal with her dementia. Lives at home with her . Patient was found in the kitchen on the floor moaning. Vital signs are stable. Imaging over the hip reveal a right hip fracture. Dr. Ojeda was contacted. 01/21 Status post ORIF yesterday. No overnight event or new complaints. Review of systems: Unable to obtain given dementia Constitutional Vitals: Vital Signs Temp Pulse Resp BP Pulse Ox 97.5 F 104 H 16 115/57 96 01/21/21 12:00 01/21/21 12:00 01/21/21 08:13 01/21/21 12:00 01/21/21 12:00 Period Temp Pulse Resp BP Sys/Rodas Pulse Ox Last 24 Hr 96.7 F-98.2 F 57-104 10-19 108-188/57-166 90-100 Intake and Output 01/21/21 01/21/21 01/21/21 05:59 13:59 21:59 Intake Total 1100 480 Output Total 950 401 Balance 150 79 Weight 48.852 kg Intake & Output: Intake & Output 01/21/21 01/21/21 01/21/21 05:59 13:59 21:59 Intake Total 1100 480 Output Total 950 401 Balance 150 79 Weight 48.852 kg Intake: IV 1000 Lactated Ringers 1,000 ml @ 100 1000 mls/hr IV .Q10H [facility] Rx#: [id number] Oral 100 480 Output: Urine Catheter Amount 400 Void Amount 950 # of times incontinent of urine 1 Other: Meal Breakfast Percent of Meal Consumed 75% Urine Appearance Clear Clear Urine Color Bright Yellow Pale Urine Odor Normal Exam: General: Alert, Awake, No acute Distress Eyes/N/T: EOMI Head/Neck: neck supple, CV: RRR, No murmurs, Pulm: Clear b/l, no wheezing/rhonchi/rales Abd: soft, nontender, +BS x4 Ext: no clubbing/cyanosis/edema, hip dressings Neuro: Alert, no focal deficits, moves all extremities, advanced dementia Skin: warm/dry OBJ DATA Labs CBC & Chem 7: 01/21/21 04:39 01/21/21 04:39 Labs: Abnormal Lab Results 01/21/21 01/21/21 01/20/21 04:39 04:39 09:51 RBC 3.59 L Hgb 9.9 L Hct 31.3 L RDW 15.0 H Neut % (Auto) 85.5 H Lymph % (Auto) 8.8 L Lymph # (Auto) 0.88 L Absolute Neutrophils 8.50 H Anion Gap Glucose 130 H Calcium 8.5 L Alkaline Phosphatase 141 H Lactate Dehydrogenase 268 H Urine Mucus Few A 01/20/21 01/20/21 08:19 08:19 RBC 3.78 L Hgb 10.7 L Hct 34.0 L RDW 15.1 H Neut % (Auto) 78.8 H Lymph % (Auto) 14.0 L Lymph # (Auto) 1.19 L Absolute Neutrophils Anion Gap 6.0 L Glucose Calcium Alkaline Phosphatase 152 H Lactate Dehydrogenase Urine Mucus Meds: Medications Acetaminophen (Acetaminophen 325 Mg Tablet) 650 mg PO Q6HP PRN PRN Reason: PAIN/FEVER > 101 Hydrocodone Bitart/Acetaminophen (Hydrocodone/Apap 5/325mg Tablet) 0 tab PO Q4HP PRN; Protocol PRN Reason: Per Pain Protocol Last Admin: 01/21/21 08:23 Dose: 1 tab Documented by: Albuterol/Ipratropium (Ipratropium/Albuterol 3 Ml Ampul.Neb) 3 ml NEB Q4HP PRN PRN Reason: Shortness Of Breath Bisacodyl (Bisacodyl 10 Mg Supp.Rect) 10 mg RI Q2-3DAYS PRN PRN Reason: Constipation Docusate Sodium (Docusate Sodium 100 Mg Capsule) 100 mg PO BID [facility] Last Admin: 01/21/21 08:23 Dose: 100 mg Documented by: Fondaparinux (Fondaparinux Sodium 2.5 Mg/0.5 Ml Syringe) 2.5 mg SQ DAILY [facility] Last Admin: 01/21/21 08:23 Dose: 2.5 mg Documented by: Potassium Chloride 40 meq/ (Dextrose) 520 mls @ 130 mls/hr IV UD PRN PRN Reason: Potassium < 3 Magnesium Sulfate (Magnesium Sulfate) 2 gm in 50 mls @ 50 mls/hr IV UD PRN PRN Reason: Magnesium </= 1.6 Lactated Ringer's (Lactated Ringers) 1,000 mls @ 100 mls/hr IV .Q10H [facility] Last Admin: 01/21/21 05:52 Dose: 100 mls/hr Documented by: Lactulose (Lactulose 20 Gm/30 Ml Oral.Yessenia) 20 gm PO DAILYP PRN PRN Reason: Constipation Magnesium Hydroxide (Magnesium Hydroxide 30 Ml Oral.Susp) 30 ml PO BIDP PRN PRN Reason: Constipation Memantine (Memantine 10 Mg Tablet) 10 mg PO BID [facility] Last Admin: 01/21/21 08:23 Dose: 10 mg Documented by: Morphine Sulfate (Morphine 4 Mg/Ml Vial) 0 mg IV Q1HP PRN; Protocol PRN Reason: Per Pain Protocol Olanzapine (Olanzapine 5 Mg Tablet) 5 mg PO HSP PRN PRN Reason: Agitation Ondansetron HCl (Ondansetron 4 Mg/2 Ml Vial) 4 mg IV Q4HP PRN PRN Reason: Nausea And Vomiting Polyethylene Glycol (Polyethylene Glycol 3350 17 Gm Packet) 17 gm PO DAILYP PRN PRN Reason: Constipation Polyethylene Glycol (Polyethylene Glycol 3350 17 Gm Packet) 17 gm PO DAILYP PRN PRN Reason: Constipation Potassium Chloride (Potassium Chloride 20 Meq Tablet) 40 meq PO UD PRN PRN Reason: Potssium is 3-3.5 Potassium Chloride (Potassium Chloride 20 Meq Tablet) 40 meq PO UD PRN PRN Reason: Potassium < 3 Senna (Sennosides 1 Tablet) 1 tab PO DAILYP PRN PRN Reason: Constipation Senna (Sennosides 1 Tablet) 2 tab PO HS [facility] Last Admin: 01/20/21 20:06 Dose: 2 tab Documented by: Sodium Biphosphate/Sodium Phosphate (Fleets Adult Enema) 1 dose RI Q3-4DAYS PRN PRN Reason: Constipation Sodium Chloride (0.9 % Sodium Chloride 10 Ml Syringe) 10 ml IV Q8 [facility] Last Admin: 01/21/21 14:41 Dose: Not Given Documented by: Throat Lozenges (Benzocaine/Menthol 1 Lozenge) 1 lozenge PO PRN PRN PRN Reason: Sore Throat A/P Narrative A/P Narrative: Assessment: 70-year-old female with advanced dementia admitted for a right hip fracture, repaired surgically on 01/20/2021. Patient is currently awaiting placement. *Right hip fracture (had Left Hip Fx in November): s/p Left Thom (01/20) *Advanced dementia: Essentially nonverbal *Generalized weakness/deconditioning: *Anemia, chronic: Plan: -Ortho for repair and pain control -pt/ot -home psych meds -CM for placement -ppx: post-op per ortho Time Spent With Patient Time: Total time spent is greater than 50% in coordination of care (as documented) at patient's floor/unit and/or counseling patient: QUALITY VTE Deep Vein Thrombosis/Pulmonary Embolism Present on Admission: No
[2021-01-21] MEDS: SENNOSIDES 1 TABLET PO SCH (20:01)
[2021-01-22] MEDS: HYDROcodone/APAP 5/325MG TABLET PO PRN ×3 (03:16→13:10)
[2021-01-22] MEDS: 0.9 % SODIUM CHLORIDE 10 ML SYRINGE IV SCH (04:12)
[2021-01-22 07:31] LABS: Hematocrit 29.5 % (36.0-48.0); Hemoglobin 9.2 g/dL (12.0-15.0)
[2021-01-22] MEDS ORDERED: MUPIROCIN OINT 2% 22GM NARES SCH (09:00)
[2021-01-22] MEDS: MEMANTINE 10 MG TABLET PO SCH (09:13)
[2021-01-22] MEDS: FONDAPARINUX SODIUM 2.5 MG/0.5 ML SYRINGE SQ SCH (09:13)
[2021-01-22] MEDS: DOCUSATE SODIUM 100 MG CAPSULE PO SCH (09:13)
--- NOTE | 2021-01-22 09:32 | Operative Note ---
DATE OF OPERATION: 01/20/2021 DATE OF PROCEDURE: 01/20/2021 PRE-OP DIAGNOSIS: Femoral neck fracture, right hip. PRE-OP DIAGNOSIS: Femoral neck fracture, right hip. PROCEDURE: Right hip hemiarthroplasty. SURGEON: Rusty Borrego MD DIRECTOR OF ORTHOPEDICS SURGEON: SELVIN Shah. The PA's assistance was required for the safe and efficient completion of the entire case. This providers expertise and technical skill were required throughout the case. The PA assisted with preoperative coordination, intraoperative retraction, limb manipulation, wound closure, dressing application, brace application, as well as post-operative documentation and care coordination. ANESTHESIA: Spinal with LMA assist. ESTIMATED BLOOD LOSS: 100 mL. COMPLICATIONS: None noted. SPECIMENS REMOVED: None. DRAINS: None. IMPLANTS: DePuy stem centralizer 10.5 mm, DePuy modular [place] tapered spacer-3, DePuy modular [place] fracture head hip ball 48 mm diameter, DePuy [place] femoral stem, tapered basic cemented size 5. INDICATIONS: Ms Lovell fell and was unable to ambulate. Radiographs have confirmed a displaced femoral neck fracture. The patient was admitted to the hospital and underwent medical clearance. After a long discussion about treatment options, the patient elected to proceed with a hip hemiarthroplasty. The risks and benefits were discussed with the patient in detail including, but not limited to, the risks of anesthesia, problems with the heart or lungs related to anesthesia, infection, compromise or injury to the nerves and blood vessels, deep venous thrombosis, pulmonary embolism, pneumonia, continued pain after surgery, worsening pain or symptoms after surgery, swelling, loss of motion, instability, leg length discrepancy, and need for repeat surgery. DESCRIPTION OF PROCEDURE: The patient was seen in pre-anesthesia waiting room where all questions were answered and the correct side and site were identified and marked. The patient was then brought to the operating room and administered the anesthetic, tranexamic acid, and given pre-operative antibiotics. A time-out was then called. The patient was placed in the lateral decubitus position with all prominences well padded using the [place] frame and the extremity was prepped and draped in the usual sterile fashion. A standard posterior approach was made. We dissected through the skin and subcutaneous tissue to the deep fascia. The deep fascia was split in line with the incision and a Charn[place] retractor was placed. We exposed, tagged, and incised the short external rotators and piriformis tendon and retracted them posteriorly to help protect the sciatic nerve which was palpated throughout the case. We then performed a T-capsulotomy and tagged the capsule edges. The hip was then dislocated and a femoral neck osteotomy was performed to the pre-surgical templated level off the lesser trochanter. The head was removed and sized. The acetabulum was inspected and did not have a significant degree of osteoarthritis. All bone and fracture debris was removed. Our attention was now turned to the femur. We placed retractors for visualization, internally rotated the femur, and established intramedullary access. We incrementally broached our stem to a stable platform medial, lateral, and rotationally with the appropriate version. We then performed a calcar reaming off the broach. Trials were then placed and optimized for leg length, soft tissue tension, and stability. Best stability, length, and offset characteristics were obtained with these sizes. We removed all trials and impacted the femoral stem to its broached location using a fourth-generation cementing technique and placed the head. Final reduction was performed. Again, good stability, leg length, and offset characteristics were noted. We irrigated with three liters of antibiotic saline. We closed the capsule with #2 FiberWire. We closed the fascia with a combination of #1 Strata-fix and #0 Vicryl. We closed the subcutaneous tissue and skin in layers out to martin on the skin. A sterile pressure dressing and abduction wedge was applied. All needle and sponge counts were correct. The patient was transferred to the recovery room in stable condition. YONIS:madelyn Job ID: [id number] Doc ID: [id number] Marika Borrego MD
--- NOTE | 2021-01-22 10:27 | Discharge Summary ---
Discharge Provider Provider Patient information: Note initiated : 01/22/21 at 10:24 am Service Date, if different from initiated Date: [] Patient: Libia Lovell 70 y/o F admitted on 01/20/21 for Fall. Chief Complaint: [] Date of admission: 01/20/21 13:42 Discharge date: 01/22/21 Primary care physician: Wojciech Wang M.D., F.A.A.F.P. Consults: 01/20/21 09:04 Consult to Physician [CONS] Stat Comment: Consulting Provider: Rusty Borrego Reason For Exam: Physician to Consult Consult to Physician [CONS] Stat Comment: Consulting Provider: Isauor Bain Reason For Exam: Physician to Consult 01/22/21 08:56 Consult to Physician [CONS] Routine Comment: Consulting Provider: [facility] Reason For Exam: Physician to Consult Discharge Meds Discharge Medications Home Medications acetaminophen 325 mg capsule 325 mg PO QDAY PRN cap 05/24/18 [History Confirmed 01/20/21 Last Taken 01/19/21 21:00] food supplemt, lactose-reduced 1 each PO BID #472 ml 07/04/18 [Rx Confirmed 01/20/21 Last Taken Unknown] memantine 10 mg tablet 10 mg PO BID #180 tab 07/06/20 [Rx Confirmed 01/20/21 Last Taken 01/19/21 21:00] fondaparinux 2.5 mg SQ DAILY #21 ml 01/20/21 [Rx Last Taken Unknown] methocarbamol 500 mg PO Q6HP PRN 01/20/21 [History Confirmed 01/20/21 Last Taken 01/12/21 21:00] COURSE Hospital Course Hospital course: Ms. Lovell is a 70 year old F With dementia and a poor historian was brought in after a fall and patient complained right hip pain. She has some bilateral arm skin tears. She is essentially nonverbal with her dementia. Lives at home with her . Patient was found in the kitchen on the floor moaning. Vital signs are stable. Imaging over the hip reveal a right hip fracture. Dr. Ojeda was contacted. 01/21 Status post ORIF yesterday. No overnight event or new complaints. 01/22 Discharged to SNF for rehab, fondaparinux for DVT prophylaxis continued. Physical Exam Head: Atraumatic, normal inspection. Eyes: normal appearance, no scleral icterus. Neck: full ROM Respiratory: no respiratory distress. Cardiovascular: normal rate and rhythm, S1, S2. GI/Abdominal: soft, nontender, no guarding. Extremities: full range of motion, tenderness present Neurological: CN II-XII intact, intact motor, intact sensation. Psychiatric: normal mood. Skin: warm, normal color Discharge diagnosis: right femoral neck fracture Time Spent with Patient Time attestation: Total time spent providing and/or coordinating discharge services: EXAM Constitutional Vitals: Temp Pulse Resp BP Pulse Ox 98.7 F 79 14 105/59 96 01/22/21 07:49 01/22/21 07:49 01/22/21 07:49 01/22/21 07:49 01/22/21 07:49 Discharge Data Data Completed and Pending Labs on day of discharge: Labs from last 24 hours 01/22/21 05:22 Hgb 9.2 L Hct 29.5 L Discharge Plan Patient/Caregiver Discharge Instructions Activity: ambulate only with your walker, as per physical therapy and increase activity as tolerated Diet: Regular Diet Prescriptions: New fondaparinux 2.5 mg/0.5 mL Syringe 2.5 mg SQ DAILY Qty: 21 RF: 0 Continued memantine 10 mg tablet 10 mg PO BID Qty: 180 RF: 1 acetaminophen [Tylenol] 325 mg capsule 325 mg PO QDAY PRN (Reason: Pain) RF: 0 food supplemt, lactose-reduced [Ensure] liquid 1 each PO BID Qty: 472 RF: 0 methocarbamol 500 mg tablet 500 mg PO Q6HP PRN (Reason: Muscle Spasm) RF: 0 Other Ambulatory Orders: OT Discharge Order (Routine) Location: None Selected Ordered By: Rusty Borrego Physical Therapy DC - [facility] (Routine) Location: None Selected Ordered By: Rusty Borrego Physical Therapy at Discharge - [place] (Routine) Location: None Selected Ordered By: Terrence Arevalo Toilet Riser Discharge Order (ONCE) Location: None Selected Ordered By: Rusty Mcclain (ONCE) Location: None Selected Ordered By: Rusty Borrego Follow Up Plan Follow up with: Wojciech Wang MD, FAAFP [Primary Care Provider] - Terrence Arevalo PA-C [Physician Stereo Equipment Salesperson] - Patient Disposition: Xfer SNF Rehab Potential: Good I certify that the patient requires SNF services: Yes Overall status at discharge: patient is progressing back to baseline Discharge Orders: Discharge Order (Routine); Ordered 01/20/21 Ordered By: Rusty Borrego Discharge Comment: cc: femoral neck fracture s/p hemiarthroplasty QUALITY VTE Deep Vein Thrombosis/Pulmonary Embolism Present on Admission: No
== END 2021-01-22 13:20 | DRG 522 ==
LOC: ED 07:22 → ICU 13:42 → MEDSUR 16:32
PROVIDERS: ADMIT Internal Medicine; ATTEND Internal Medicine